=== PATIENT | female | born 1960 | race Caucasian/White ===

== ENCOUNTER → 2025-07-20 | Outpatient (CLI) | payer MEDICARE, OTHER, SELFPAY ==
--- NOTE | 2025-07-20 08:31 | CT_ITS ---
PROCEDURE: ABDOMEN/PELVIS WITH CONTRAST 07/20/2025 REASON FOR EXAM: ASYMPTOMATIC MICROSCOPIC HEMATURIA TECHNIQUE: Procedure Code: [id number] Modality: CT Procedure: ABDOMEN/PELVIS WITH CONTRAST Coronal and Sagittal reconstruction series were provided. CONTRAST: Isovue 370 VOLUME: 75 ML One or more dose reduction techniques were used (e.g., Automated exposure control, adjustment of the mA and/or kV according to patient size, use of iterative reconstruction technique. RADIATION DOSE SUMMARY: CTDlvol: 18.3 mGy DLP: 1067.35 mGycm COMPARISON: None. FINDINGS: Lung bases: Clear. Liver: Unremarkable. Gallbladder: Cholelithiasis. No biliary dilation. Spleen: Unremarkable. Pancreas: Unremarkable. Adrenals: A 2.5 cm right adrenal cyst. The left adrenal cyst is unremarkable. Kidneys: No hydronephrosis. No nephrolithiasis. No kidney mass. Bladder: Unremarkable. Reproductive Organs: Unremarkable. Bowel: No bowel wall thickening. No bowel obstruction. Appendix: Normal. Lymph nodes: No lymphadenopathy. Vasculature: No aneurysm. Peritoneum / Retroperitoneum: No free air or free fluid. Bones: No acute bony elements. CT/Abdomen/Pelvis WITH Contrast IMPRESSION: No acute abdominopelvic abnormalities. No kidney masses. No hydronephrosis. No nephrolithiasis. Cholelithiasis with no evidence of acute cholecystitis. Incidental 2.5 cm right adrenal cyst. Reading Location: [facility] [place]
== END | disposition home or self-care (01) ==
LOC: CT 08:29
PROVIDERS: PCP Family Medicine; Referring Provider Urology; Visit Provider Urology
DX: R31.21 Asymptomatic microscopic hematuria (principal)
CPT/HCPCS: 74177; Q9967

== ENCOUNTER 2025-08-08 18:38 | Emergency (ER) | payer MEDICARE, OTHER, SELFPAY ==
[2025-08-08 18:39] VITALS: BP 139/71; PULSE 68; RESP 16; TEMP 36.4; O2SAT 100; BMI 31.3
[2025-08-08 19:00] LABS: Mucous, Urine 0 SEEN /hpf (<or=2+)
[2025-08-08 19:01] LABS: Color, Urine Yellow (Yellow); Glucose, Dipstick Normal (Normal); Ketone-Dipstick Negative (Negative); Leukocyte Esterase-Dipstick Negative /ul (Negative); Nitrite-Dipstick Negative (Negative); Occult Blood-Urine 150 /ul (Negative); Protein-Dipstick Negative (Negative); Specific Gravity, Urine 1.005 (1.002-1.030); Urine Bilirubin Dipstick Negative (Negative)
[2025-08-08 19:11] LABS: Red Blood Cells-Urine 0-5 SEEN /hpf (0-5); Squamous Epithelial Cells - UA 0-5 SEEN /hpf (5-10)
--- OUTSIDE RECORDS SUMMARY | 2025-08-08 19:29 | XMS RPT_ITS | CCD ---
Author Organization [facility] Care Team Providers Care Oxyhydrogen Welder Name Role Phone Bharat Gallego Unavailable Unavailable Primay Care Physicia, No Unavailable Unavail able MODESTA ZAIDI DO Primary Care Physician [phone] MODESTA ZAIDI DO Attending Unavailable MODESTA ZAIDI DO Primary Care Unavailable MODESTA ZAIDI DO Primary Care Physician MODESTA ZAIDI DO Attending Unavailable DYAN DO, MODESTA Primary Care Unavailable DYAN DO, MODESTA Primary Care Unavailable DYAN DO, MODESTA Attending Unavailable DYAN DO, MODESTA Primary Care Unavailable DYAN DO, MODESTA Attending Unavailable YDAN DO, MODESTA Primary Care Unavailable DAVID REGULATORY COMPLIANCE MANAGER-LEATHER CARVER, NAPOLEON Chamorro Attending Unava ilable DYAN DO, MODESTA Primary Care Unavailable DENISE REGULATORY COMPLIANCE MANAGER-LEATHER CARVER, AMIEEDA Attending Unavailab le DYAN DO, MODESTA Primary Care Unavailable DENISE REGULATORY COMPLIANCE MANAGER-LEATHER CARVER, AMIEEDA Attending Unavailab le DYAN DO, MODESTA Primary Care Unavailable DYAN DO, MODESTA Attending Unavailable DYAN DO, MODESTA Primary Care Unavailable DYAN DO, MODESTA Attending Unavailable Allergies Allergy Classification Reported Allergen(s) Allergy Type Date of Onset Reaction(s) Facility (9 sources) Sulfamethoxazole / Trimethoprim; Translations: [sulfamethoxazole-tri methoprim] Drug Allergy Rash [facility] Work Phone: Medications Current Medications Medication Drug Class(es) Dates Sig (Normalized) Sig (Original) acetaminophen 500 mg / diphenhydrAMINE hydrochloride 25 mg oral tablet (7 sources) Histamine-1 Receptor Antagonist Start: 04-20-2021 take 1 tablet by mouth once daily at bedtime Tylenol PM Extra Strength oral tablet tab(s), Oral, qHS, 0 Refill(s) Start Date: 04/20/21 Status: Ordered Medication Dispense Status: Completed Total Allowed Fills: 1 Fills Dispensed: 0 busPIRone hydrochloride 5 mg oral tablet (1 source) Start: 05-27-2025 busPIRone 5 mg oral tablet Dose : 5 mg = 1 tab(s), Oral, TID, # 90 tab(s), 1 Refill(s), Pharmacy: [facility]/pharmacy #[id number], Anxiety, 162, cm, 05/27/25 8:57:00 EDT, Height, kg, 05/27/25 8:57:00 EDT, Dosing Weight Start Date: 05/27/25 Status: Ordered Medication Dispense Status: Completed Quantity: 90.0 Unit: tab(s) Total Allowed Fills: 2 Fills Dispensed: 0 Indications: Anxiety disorder, unspecified; cephalexin 500 mg oral capsule (1 source) Cephalosporin Antibacterial Start: 10-02-2021 End: 10-09-2021 cephalexin 500 mg oral capsule Dose : 500 mg = 1 cap(s), Oral, q8h, X 7 day(s), # 21 cap(s), 0 Refill(s), 10/09/21 16:15:00 EST, [id number], Abscess of back, 162.7, cm, 10/02/21 15:37:00 EST, Height, 81.1, kg, 10/02/21 15:37:00 EST, Dosing Weight Start Date: 10/02/21 Stop Date: 10/09/21 Status: Ordered citalopram 40 mg oral tablet (9 sources) Serotonin Reuptake Inhibitor Start: 05-27-2025 CeleXA 40 mg oral tablet Dose : 40 mg = 1 tab(s), Oral, qDay, # 90 tab(s), 1 Refill(s), Pharmacy: [facility]/pharmacy #[id number], Mild recurrent major depression Anxiety, 162, cm, 05/27/25 8:57:00 EDT, Height, kg, 05/27/25 8:57:00 EDT, Dosing Weight Start Date: 05/27/25 Status: Ordered Medication Dispense Status: Completed Quantity: 90.0 Unit: tab(s) Total Allowed Fills: 2 Fills Dispensed: 0 Indications: Major depressive disorder, recurrent, mild; Anxiety disorder, unspecified; Start: 11-17-2024 CeleXA 40 mg o ral tablet Dose : 40 mg = 1 tab(s), Oral, qDay, # 90 tab(s), 1 Refill(s), [id number], Depressive disorder Mild recurrent major depression, 162.2, cm, 05/22/24 8:56:00 EDT, Height, kg, 05/22/24 8:56:00 EDT, Dosing Weight Start Date: 11/17/24 Status: Ordered Medication Dispense Status: Completed Quantity: 90.0 Unit: tab(s) Total Allowed Fills: 2 Fills Dispensed: 0 Indications: Major depressive disorder, recurrent, mild; Major depressive disorder, single episode, unspecified; Start: 05-22-2024 CeleXA 40 mg o ral tablet Dose : 40 mg = 1 tab(s), Oral, qDay, # 90 tab(s), 1 Refill(s), [id number], Depressive disorder Mild recurrent major depression, 162.2, cm, 05/22/24 8:56:00 EDT, Height, kg, 05/22/24 8:56:00 EDT, Dosing Weight Start Date: 05/22/24 Status: Ordered Start: 07-02-2023 CeleXA 40 mg o ral tablet Dose : 40 mg = 1 tab(s), Oral, qDay, # 90 tab(s), 1 Refill(s), [id number], Depressive disorder Mild recurrent major depression, 162.75, cm, 07/02/23 15:24:00 EST, Height, kg, 07/02/23 15:24:00 EST, Dosing Weight Start Date: 07/02/23 Status: Ordered Start: 04-20-2021 CeleXA 40 mg o ral tablet Dose : 40 mg = 1 tab(s), Oral, Daily, # 30 tab(s), 11 Refill(s), [id number], Depressive disorder, 161.4, cm, 04/20/21 10:52:00 EDT, Height, kg, 04/20/21 10:52:00 EDT, Dosing Weight Start Date: 04/20/21 Status: Ordered estradiol 0.1 mg/ml vaginal cream (2 sources) Estrogen Start: 05-06-2025 End: 07-05-2025 Estrace Vaginal 0.1 mg/g vaginal cream 0.05 mg, Vaginal, qDay, 0.5g cream (0.05mg estradiol) once nightly x 2 weeks, then twice weekly, # 42.5 gram(s), 1 Refill(s), [id number], 162.5, cm, 05/06/25 7:56:00 EDT, Height, kg, 05/06/25 7:59:00 EDT, Dosing Weight Start Date: 05/06/25 Stop Date: 07/05/25 Status: Ordered Medication Dispense Status: Completed Quantity: 42.5 Unit: g Total Allowed Fills: 2 Fills Dispensed: 0 simvastatin 20 mg oral tablet (8 sources) HMG-CoA Reductase Inhibitor Start: 05-27-2025 simvastatin 20 mg or al tablet Dose : 20 mg = 1 tab(s), Oral, qHS, # 90 tab(s), 1 Refill(s), [id number], Hyperlipidemia, 162, cm, 05/27/25 8:57:00 EDT, Height, kg, 05/27/25 8:57:00 EDT, Dosing Weight Start Date: 05/27/25 Status: Ordered Medication Dispense Status: Completed Quantity: 90.0 Unit: tab(s) Total Allowed Fills: 2 Fills Dispensed: 0 Indications: Hyperlipidemia, unspecified; Start: 11-17-2024 simvastatin 20 mg oral tablet Dose : 20 mg = 1 tab(s), Oral, qHS, # 90 tab(s), 1 Refill(s), [id number], Hyperlipidemia, 162.2, cm, 05/22/24 8:56:00 EDT, Height, kg, 05/22/24 8:56:00 EDT, Dosing Weight Start Date: 11/17/24 Status: Ordered Medication Dispense Status: Completed Quantity: 90.0 Unit: tab(s) Total Allowed Fills: 2 Fills Dispensed: 0 Indications: Hyperlipidemia, unspecified; Start: 05-22-2024 simvastatin 20 mg oral tablet Dose : 20 mg = 1 tab(s), Oral, qHS, # 90 tab(s), 1 Refill(s), [id number], Hyperlipidemia, 162.2, cm, 05/22/24 8:56:00 EDT, Height, kg, 05/22/24 8:56:00 EDT, Dosing Weight Start Date: 05/22/24 Status: Ordered Start: 07-02-2023 simvastatin 20 mg oral tablet Dose : 20 mg = 1 tab(s), Oral, qHS, # 90 tab(s), 1 Refill(s), [id number], Hyperlipidemia, 162.75, cm, 07/02/23 15:24:00 EST, Height, kg, 07/02/23 15:24:00 EST, Dosing Weight Start Date: 07/02/23 Status: Ordered Start: 06-27-2021 simvastatin 20 mg oral tablet Dose : 20 mg = 1 tab(s), Oral, qHS, # 90 tab(s), 1 Refill(s), [id number], Hyperlipidemia, 162.7, cm, 06/27/21 8:07:00 EST, Height, kg, 06/27/21 8:07:00 EST, Dosing Weight Start Date: 06/27/21 Status: Ordered Tylenol PM Extra Strength oral tablet (2 sources) Start: 04-20-2021 take 1 tablet by mouth once daily at bedtime Tylenol PM Extra Strength oral tablet tab(s), Oral, qHS, 0 Refill(s) Start Date: 04/20/21 Status: Ordered Problems Active Problems Problem Classification Problem Date Documented Date Episodic/Chronic Anxiety disorders (1 source) Anxiety 05-27-2025 Chronic Disorders of lipid metabolism (9 sources) Hyperlipidemia 06-08-2020 Chronic Genitourinary symptoms and ill-defined conditions (4 sources) Microscopic hematuria; Translations: [Unspecified symptoms and signs involving the genitourinary system] Onset: 04-12-2025 05-06-2025 Episodic Menopausal disorders (4 sources) Atrophic vaginitis; Translations: [Postmenopausal atrophic vaginitis] Onset: 05-06-2025 05-06-2025 Chronic Mood disorders (15 sources) Depressive disorder; Translations: [Recurrent major depressive episodes, mild ] 05-12-2019 Chronic Noninfectious gastroenteritis (9 sources) Microscopic colitis 06-27-2020 Chronic Nutritional deficiencies (4 sources) Vitamin D deficiency 11-26-2024 Chronic Other female genital disorders (2 sources) Other specified noninflammatory disorders of vagina; Translations: [Other specified noninflammatory disorders of vagina] Onset: 04-09-2025 Episodic Other inflammatory condition of skin (9 sources) Chafing of skin 04-20-2021 Episodic Other nutritional; endocrine; and metabolic disorders (7 sources) Body mass index 30+ - obesity 05-24-2022 Chronic Other skin disorders (6 sources) Closed comedone 09-12-2023 Episodic Other skin disorders (4 sources) Cyst of skin 11-26-2024 Episodic Residual codes; unclassified (9 sources) Needs influenza immunization 06-08-2020 Episodic Residual codes; unclassified (8 sources) Requires diphtheria, tetanus and pertussis vaccination 06-27-2021 Episodic Residual codes; unclassified (7 sources) Requires varicella vaccination 12-19-2021 Episodic Residual codes; unclassified (6 sources) Screening due 09-12-2023 Episodic Screening and history of mental health and substance abuse codes (7 sources) Tobacco use and exposure - finding 05-24-2022 Chronic Unclassified (1 source) Lymphocytic colitis; Translations: [LYMPHOCYTIC COLITIS] Onset: 07-18-2017 Unclassified (20 sources) Patient encounter status 05-13-2019 Unclassified (8 sources) Cancer cervix screening status 06-27-2021 Unclassified (8 sources) Sebaceous cyst of skin 10-06-2021 Unclassified (6 sources) Requires vaccination against Streptococcus pneumoniae 05-22-2024 Past or Other Problems Problem Classification Problem Date Documented Da te Episodic/Chronic Other screening for suspected conditions (not mental disorders or infectious disease) (12 sources) Viral screening status; Translations: [Thyroid function tests abnormal] Onset: 07-21-2024 05-22-2024 Episodic Results Test Name Value Interpretation Reference Range Facility .Auto Diffon 05-28-2025 Basophil, Absolute 0.0 10 3/mcL Normal 0.0-0.3 [facility] Comment on above: Performed By: #### L IPID, CBC, TSH, GFR, VIDH, ADIFF, ANEU, CMP ####[address] [address] Basophils/100 WBC (Bld) 0.4 % Normal 0.0-2.5 [facility] Comment on above: Performed By: #### L IPID, CBC, TSH, GFR, VIDH, ADIFF, ANEU, CMP ####[address] [address] Eosinophil, Absolute 0.1 10 3/mcL Normal 0.0-0.7 [facility] Comment on above: Performed By: #### L IPID, CBC, TSH, GFR, VIDH, ADIFF, ANEU, CMP ####[address] [address] Eosinophils/100 WBC (Bld) 2.6 % Normal 0.0-6.0 [facility] Comment on above: Performed By: #### L IPID, CBC, TSH, GFR, VIDH, ADIFF, ANEU, CMP ####[address] [address] Lymphocyte, Absolute 2.0 10 3/mcL Normal 0.9-4.3 [facility] Comment on above: Performed By: #### L IPID, CBC, TSH, GFR, VIDH, ADIFF, ANEU, CMP ####[address] [address] Lymphocytes/100 WBC (Bld) 38.2 % Normal 20.0-40.0 [facility] Comment on above: Performed By: #### L IPID, CBC, TSH, GFR, VIDH, ADIFF, ANEU, CMP ####[address] [address] Monocyte, Absolute 0.4 10 3/mcL Normal 0.1-1.4 [facility] Comment on above: Performed By: #### L IPID, CBC, TSH, GFR, VIDH, ADIFF, ANEU, CMP ####[address] [address] Monocytes/100 WBC (Bld) 7.4 % Normal 2.0-13.0 [facility] Comment on above: Performed By: #### L IPID, CBC, TSH, GFR, VIDH, ADIFF, ANEU, CMP ####[address] [address] Neutrophils/100 WBC (Bld) 51.4 % Normal 50.0-75.0 [facility] Comment on above: Performed By: #### L IPID, CBC, TSH, GFR, VIDH, ADIFF, ANEU, CMP ####[address] [address] .GFRon 05-28-2025 Estimated Glomerular Filtration Rate 76 ml/min/1.73sqm Normal [facility] Comment on above: Result Comment: Stages of Chronic Kidney Disease (CKD) Stage Description eGFR(ml/min/1.73 sq.m.) CKD 1 Normal kidney function or >=90 normal kindney function with possible kidney damage (ex. Proteinuria) CKD 2 Kidney damage with mild loss 60-89 of kidney function CKD 3a Mild to moderate loss of kidney 45-59 function CKD 3b Moderate to severe loss of 30-44 of kindey function CKD 4 Severe loss of kidney function 15-29 CKD 5 Kidney failure <15 Note: (go live 2024) the eGFR calculation was updated to the 2020 CKD-EPI creatinine equation without a race factor to calculate the eGFR results. Performed By: #### L IPID, CBC, TSH, GFR, VIDH, ADIFF, ANEU, CMP #### [address] [address] .NEUABSon 05-28-2025 Neutrophil, Absolute 2.7 10 3/mcL Normal 2.3-8.1 [facility] Comment on above: Performed By: #### L IPID, CBC, TSH, GFR, VIDH, ADIFF, ANEU, CMP ####[address] [address] CBCon 05-28-2025 Erythrocyte distribution width (RBC) [Ratio] 12.8 % Normal 11.5-15.5 [facility] Comment on above: Performed By: #### L IPID, CBC, TSH, GFR, VIDH, ADIFF, ANEU, CMP #### [address] [address] Hematocrit (Bld) [Volume fraction] 39.6 % Normal 34.0-46.0 [facility] Comment on above: Performed By: #### L IPID, CBC, TSH, GFR, VIDH, ADIFF, ANEU, CMP #### [place] [address] Hgb 13.5 G/dL Normal 12.0-16.0 [facility] Comment on above: Performed By: #### L IPID, CBC, TSH, GFR, VIDH, ADIFF, ANEU, CMP #### [place] [address] MCH (RBC) [Entitic mass] 30.7 pg Normal 27.0-33.0 [facility] Comment on above: Performed By: #### L IPID, CBC, TSH, GFR, VIDH, ADIFF, ANEU, CMP #### [place] [address] MCHC 34.0 G/dL Normal 32.0-36.0 [facility] Comment on above: Performed By: #### L IPID, CBC, TSH, GFR, VIDH, ADIFF, ANEU, CMP #### [place] [address] MCV (RBC) [Entitic vol] 90.3 fL Normal 80.0-99.0 [facility] Comment on above: Performed By: #### L IPID, CBC, TSH, GFR, VIDH, ADIFF, ANEU, CMP #### [address] [address] Platelet 253 10 3/mcL Normal 150-450 [facility] Comment on above: Performed By: #### L IPID, CBC, TSH, GFR, VIDH, ADIFF, ANEU, CMP #### [address] [address] Platelet mean volume (Bld) [Entitic vol] 8.3 fL Normal 6.6-10.5 [facility] Comment on above: Performed By: #### L IPID, CBC, TSH, GFR, VIDH, ADIFF, ANEU, CMP #### [address] [address] RBC 4.38 10 6/mcL Normal 4.10-5.30 [facility] Comment on above: Performed By: #### L IPID, CBC, TSH, GFR, VIDH, ADIFF, ANEU, CMP #### [address] [address] WBC 5.2 10 3/mcL Normal 4.5-10.8 [facility] Comment on above: Performed By: #### L IPID, CBC, TSH, GFR, VIDH, ADIFF, ANEU, CMP #### [address] [address] CMPon 05-28-2025 Albumin Level 4.0 G/dL Normal 3.4-4.8 [facility] Comment on above: Performed By: #### L IPID, CBC, TSH, GFR, VIDH, ADIFF, ANEU, CMP #### [address] [address] Albumin/Globulin [Mass ratio] 1.2 {ratio} Normal 1.1-2.5 [facility] Comment on above: Performed By: #### L IPID, CBC, TSH, GFR, VIDH, ADIFF, ANEU, CMP #### [address] [address] ALP [Catalytic activity/Vol] 80 U/L Normal 40-135 [facility] Comment on above: Performed By: #### L IPID, CBC, TSH, GFR, VIDH, ADIFF, ANEU, CMP #### [address] [address] ALT [Catalytic activity/Vol] 30 U/L Normal 14-59 [facility] Comment on above: Performed By: #### L IPID, CBC, TSH, GFR, VIDH, ADIFF, ANEU, CMP #### [address] [address] AST [Catalytic activity/Vol] 20 U/L Normal 10-40 [facility] Comment on above: Performed By: #### L IPID, CBC, TSH, GFR, VIDH, ADIFF, ANEU, CMP #### [address] [address] Bili Total 1.0 mg/dL Normal 0.2-1.0 [facility] Comment on above: Result Comment: Use of this assay is not recommended for patients undergoing treatment with eltrombopag due to the potential for falsely elevated results. Performed By: #### L IPID, CBC, TSH, GFR, VIDH, ADIFF, ANEU, CMP #### [place] [address] BUN/Creatinine Ratio 14 ratio Normal 7-27 [facility] Comment on above: Performed By: #### L IPID, CBC, TSH, GFR, VIDH, ADIFF, ANEU, CMP #### [place] [address] Calcium [Mass/Vol] 9.3 mg/dL Normal 8.4-10.2 [facility] Comment on above: Performed By: #### L IPID, CBC, TSH, GFR, VIDH, ADIFF, ANEU, CMP #### [place] [address] Chloride [Moles/Vol] 105 mmol/L Normal 98-107 [facility] Comment on above: Performed By: #### L IPID, CBC, TSH, GFR, VIDH, ADIFF, ANEU, CMP #### [address] [address] CO2 [Moles/Vol] 35 mmol/L High 23-31 [facility] Comment on above: Performed By: #### L IPID, CBC, TSH, GFR, VIDH, ADIFF, ANEU, CMP #### [place] [address] Creatinine [Mass/Vol] 0.85 mg/dL Normal 0.51-0.95 [facility] Comment on above: Performed By: #### L IPID, CBC, TSH, GFR, VIDH, ADIFF, ANEU, CMP #### [address] [address] Electrolyte Balance 2.0 mEq/L Low 4.0-15.0 [facility] Comment on above: Performed By: #### L IPID, CBC, TSH, GFR, VIDH, ADIFF, ANEU, CMP #### [address] [address] Globulin 3.4 G/dL Normal 2.7-4.4 [facility] Comment on above: Performed By: #### L IPID, CBC, TSH, GFR, VIDH, ADIFF, ANEU, CMP #### [address] [address] Glucose [Mass/Vol] 89 mg/dL Normal 80-115 [facility] Comment on above: Performed By: #### L IPID, CBC, TSH, GFR, VIDH, ADIFF, ANEU, CMP #### [address] [address] Potassium [Moles/Vol] 4.7 mmol/L Normal 3.5-5.1 [facility] Comment on above: Performed By: #### L IPID, CBC, TSH, GFR, VIDH, ADIFF, ANEU, CMP #### [address] [address] Sodium [Moles/Vol] 142 mmol/L Normal 136-145 [facility] Comment on above: Performed By: #### L IPID, CBC, TSH, GFR, VIDH, ADIFF, ANEU, CMP #### [address] [address] Total Protein 7.4 G/dL Normal 6.4-8.2 [facility] Comment on above: Performed By: #### L IPID, CBC, TSH, GFR, VIDH, ADIFF, ANEU, CMP #### [address] [address] Urea nitrogen [Mass/Vol] 12 mg/dL Normal 7-18 [facility] Comment on above: Performed By: #### L IPID, CBC, TSH, GFR, VIDH, ADIFF, ANEU, CMP #### [place] [address] [place], [place] [address] LABORATORYOrdered By: SYSTEM SYSTEM on 05-28-2025 25-hydroxyvitamin D3 [Mass/Vol] 44.3 ng/mL Invalid Interpretation Code AO ADM SS Comment on above: Interpretive Data: I nterpretive Values Based on Total 25(OH) Vitamin D: Deficient <20 ng/mL Insufficient 20 - <30 ng/mL Sufficient 30-100 ng/mL Albumin BCP dye [Mass/Vol] 4.0 G/dL Normal 3.4 - 4.8 G/dL AO ADM SS Albumin/Globulin [Mass ratio] 1.2 {ratio} Normal 1.1 - 2.5 ratio AO ADM SS ALP [Catalytic activity/Vol] 80 U/L Normal 40 - 135 U/L AO ADM SS ALT With P-5'-P [Catalytic activity/Vol] 30 U/L Normal 14 - 59 U/L AO ADM SS AST With P-5'-P [Catalytic activity/Vol] 20 U/L Normal 10 - 40 U/L AO ADM SS Basophils (Bld) [#/Vol] 0.0 103/mcL Normal 0.0 - 0.3 10^3/mcL AO Workflow SS Basophils/100 WBC (Bld) 0.4 % Normal 0.0 - 2.5 % AO Workflow SS Bilirubin [Mass/Vol] 1.0 mg/dL Normal 0.2 - 1 .0 mg/dL AO ADM SS Comment on above: Interpretive Data: U se of this assay is not recommended for patients undergoing treatment with eltrombopag due to the potential for falsely elevated results. Calcium [Mass/Vol] 9.3 mg/dL Normal 8.4 - 10. 2 mg/dL AO ADM SS Chloride [Moles/Vol] 105 mmol/L Normal 98 - 10 7 mmol/L AO ADM SS CO2 [Moles/Vol] 35 mmol/L High 23 - 31 mmol/L AO ADM SS Creatinine [Mass/Vol] 0.85 mg/dL Normal 0.51 - 0.95 mg/dL AO ADM SS Electrolyte Balance 2.0 mEq/L Low 4.0 - 15 .0 mEq/L AO ADM SS Eosinophil, Absolute 0.1 103/mcL Normal 0.0 - 0 .7 10^3/mcL AO Workflow SS Eosinophils/100 WBC (Bld) 2.6 % Normal 0.0 - 6.0 % AO Workflow SS Erythrocyte distribution width (RBC) [Ratio] 12.8 % Normal 11.5 - 15.5 % AO Workflow SS Globulin 3.4 G/dL Normal 2.7 - 4.4 G/dL AO ADM SS GLOMERULAR FILTRATION RATE/1.73 SQ M.PREDICTED:ARVRAT:PT: SER/PLAS/BLD:QN:CREATI NINE-BASED FORMULA (CKD-EPI 2020) 76 ml/min/1.73sqm Invalid Interpretation Code AO Chemistry S Comment on above: Interpretive Data: Stages of Chronic Kidney Disease (CKD) Stage Description eGFR(ml/min/1.73 sq.m.) CKD 1 Normal kidney function or >=90 normal kindney function with possible kidney damage (ex. Proteinuria) CKD 2 Kidney damage with mild loss 60-89 of kidney function CKD 3a Mild to moderate loss of kidney 45-59 function CKD 3b Moderate to severe loss of 30-44 of kindey function CKD 4 Severe loss of kidney function 15-29 CKD 5 Kidney failure <15 Note: (go live 2024) the eGFR calculation was updated to the 2020 CKD-EPI creatinine equation without a race factor to calculate the eGFR results. Glucose [Mass/Vol] 89 mg/dL Normal 80 - 115 mg/dL AO ADM SS Hematocrit (Bld) [Volume fraction] 39.6 % Normal 34.0 - 46.0 % AO Workflow SS Hemoglobin (Bld) [Mass/Vol] 13.5 G/dL Normal 12.0 - 16.0 G/dL AO Workflow SS Lymphocytes (Bld) [#/Vol] 2.0 103/mcL Normal 0.9 - 4.3 10^3/mcL AO Workflow SS Lymphocytes/100 WBC (Bld) 38.2 % Normal 20.0 - 40.0 % AO Workflow SS MCH (RBC) [Entitic mass] 30.7 pg Normal 27.0 - 33.0 pg AO Workflow SS MCHC 34.0 G/dL Normal 32.0 - 36.0 G/dL AO Workflow SS MCV (RBC) [Entitic vol] 90.3 fL Normal 80.0 - 99.0 fL AO Workflow SS Monocytes (Bld) [#/Vol] 0.4 103/mcL Normal 0.1 - 1.4 10^3/mcL AO Workflow SS Monocytes/100 WBC (Bld) 7.4 % Normal 2.0 - 13.0 % AO Workflow SS Neutrophils (Bld) [#/Vol] 2.7 103/mcL Normal 2.3 - 8.1 10^3/mcL AO Workflow SS Neutrophils/100 WBC (Bld) 51.4 % Normal 50.0 - 75.0 % AO Workflow SS Platelet mean volume (Bld) [Entitic vol] 8.3 fL Normal 6.6 - 10.5 fL AO Workflow SS Platelets (Bld) [#/Vol] 253 103/mcL Normal 150 - 450 10^3/mcL AO Workflow SS Potassium [Moles/Vol] 4.7 mmol/L Normal 3.5 - 5.1 mmol/L AO ADM SS Protein [Mass/Vol] 7.4 G/dL Normal 6.4 - 8.2 G/dL AO ADM SS RBC (Bld) [#/Vol] 4.38 106/mcL Normal 4.10 - 5.3 0 10^6/mcL AO Workflow SS Sodium [Moles/Vol] 142 mmol/L Normal 136 - 145 mmol/L AO ADM SS TSH Qn 2.92 m[IU]/L Normal 0.36 - 3.74 mcIU/mL AO ADM SS Urea nitrogen [Mass/Vol] 12 mg/dL Normal 7 - 18 mg/dL AO ADM SS Urea nitrogen/Creatinine [Mass ratio] 14 ratio Normal 7 - 27 ratio AO ADM SS WBC (Bld) [#/Vol] 5.2 103/mcL Normal 4.5 - 10.8 10^3/mcL AO Workflow SS LABORATORYOrdered By: Noe Singh on 05-28-2025 Cholesterol [Mass/Vol] 173 mg/dL Normal 0 - 200 mg/dL AO ADM SS Comment on above: Interpretive Data: C holesterol Reference Interval: Less than 200 Desirable 200-239 Borderline high risk 240 and above High risk Cholesterol in HDL [Mass/Vol] 48 mg/dL Normal 40 - 60 mg/dL AO ADM SS Cholesterol in LDL [Mass/Vol] 92 mg/dL Normal 0 - 130 mg/dL AO ADM SS Triglyceride [Mass/Vol] 165 mg/dL High 0 - 150 mg/dL AO ADM SS Comment on above: Interpretive Data: T riglyceride Reference Interval: Less than 150 Normal 150-199 Borderline high risk 200-499 High risk 500 or higher Very high risk LIPIDon 05-28-2025 Cholesterol [Mass/Vol] 173 mg/dL Normal 0-200 [facility] Comment on above: Result Comment: Chol esterol Reference Interval: Less than 200 Desirable 200-239 Borderline high risk 240 and above High risk Performed By: #### L IPID, CBC, TSH, GFR, VIDH, ADIFF, ANEU, CMP ####[facility] [place], [place] [address] Cholesterol in HDL [Mass/Vol] 48 mg/dL Normal 40-60 [facility] Comment on above: Performed By: #### L IPID, CBC, TSH, GFR, VIDH, ADIFF, ANEU, CMP ####[facility] [place], [place] [address] Cholesterol in LDL [Mass/Vol] 92 mg/dL Normal 0-130 [facility] Comment on above: Performed By: #### L IPID, CBC, TSH, GFR, VIDH, ADIFF, ANEU, CMP ####[facility] [place] [id number] Triglyceride [Mass/Vol] 165 mg/dL High 0-150 [facility] Comment on above: Result Comment: Trig lyceride Reference Interval: Less than 150 Normal 150-199 Borderline high risk 200-499 High risk 500 or higher Very high risk Performed By: #### L IPID, CBC, TSH, GFR, VIDH, ADIFF, ANEU, CMP ####[facility] [place] [id number] TSHon 05-28-2025 TSH Qn 2.92 m[IU]/L Normal 0.36-3.74 [facility] Comment on above: Performed By: #### L IPID, CBC, TSH, GFR, VIDH, ADIFF, ANEU, CMP #### [id number] [place], [place] [address] VIDHon 05-28-2025 Vit. D 25-Hydroxy 44.3 ng/mL Normal [facility] Comment on above: Result Comment: Inte rpretive Values Based on Total 25(OH) Vitamin D: Deficient <20 ng/mL Insufficient 20 - <30 ng/mL Sufficient 30-100 ng/mL Performed By: #### L IPID, CBC, TSH, GFR, VIDH, ADIFF, ANEU, CMP #### [facility] [address] [place], [place] [address] CVTVon 05-07-2025 Nikky glabrata Negative Normal Negative [facility] Comment on above: Performed By: #### C VTV #### [place] [address] Nikky Species Negative Normal Negative [facility] Comment on above: Result Comment: Mole cular methodology performed on the [facility] [employer] [facility] System. Performed By: #### C VTV #### [place] [address] Trichomonas vaginalis Negative Normal Negative [facility] Comment on above: Performed By: #### C VTV #### [place] [address] LABORATORYOrdered By: SYSTEM SYSTEM on 05-06-2025 Nikky glabrata PCR Negative (05/06/25 1:25 PM) Normal Negative [facility] Auto Viro/Sero SS Nikky Species Negative 1 (05/06/25 1:25 PM) Normal Negative [facility] Auto Viro/Sero SS Comment on above: Interpretive Data: M olecular methodology performed on the [employer] System. Trichomonas vaginalis Negative (05/06/25 1:25 PM) Normal Negative AH Auto Viro/Sero SS BVPCRon 04-12-2025 Bacterial Vaginosis Negative Normal Negative [facility] Comment on above: Result Comment: Mole cular methodology performed on the [employer] System. Performed By: #### B VPCR, CVTV ####[place] [address] CVTVon 04-12-2025 Nikky glabrata Negative Normal Negative [facility] Comment on above: Performed By: #### B VPCR, CVTV ####[place] [address] Nikky Species Negative Normal Negative [facility] Comment on above: Result Comment: Mole cular methodology performed on the [employer] System. Performed By: #### B VPCR, CVTV ####[place] [address] Trichomonas vaginalis Negative Normal Negative [facility] Comment on above: Performed By: #### B VPCR, CVTV ####[address] [address] No Panel Informationon 04-12 Culture Urine 10,000 - 50,000 cfu/ml Mixed growth consistent with normal urogenital caryn. [facility] LABORATORYOrdered By: SYSTEM SYSTEM on 04-09-2025 Bacterial Vaginosis Negative 2 (04/09/25 9:19 AM) Normal [facility] Auto Viro/Sero SS Comment on above: Interpretive Data: M olecular methodology performed on the [employer] [place] System. Nikky glabrata PCR Negative (04/09/25 9:19 AM) Normal AH Auto Viro/Sero SS Nikky Species Negative 1 (04/09/25 9:19 AM) Normal AH Auto Viro/Sero SS Comment on above: Interpretive Data: M olecular methodology performed on the [employer] [facility] [place] System. Trichomonas vaginalis Negative (04/09/25 9:19 AM) Normal AH Auto Viro/Sero SS No Panel Informationon 04-09 Culture Urine 10,000 - 50,000 cfu/ml Multiple bacterial morphotypes present. Probable Contamination. Suggest recollection if clinically indicated. [facility] TSHRon 11-26-2024 TSH Qn 3.12 m[IU]/L Normal 0.36-3.74 [facility] Comment on above: Performed By: #### T SHR ####[address] [address] [place] MAMMOGRAM SCREENING BILAT ERAL W/TOMOon 07-25-2024 MA MAMMOGRAM SCREENING BILATERAL W/JULIEN ORIGINAL FROM: [facility] [address] [place], [place] [address] PROCEDURE FOR: MAYKEL MENDEZ [address] [id number] Home: PID#: [id number] Exam#: [id number] : 1960 Age: 64 TO: MODESTA ZAIDI DO [address] [address] Fax: NO FAX EXAMINATION: SCREENING DIGITAL BILATERAL MAMMOGRAM WITH TOMOSYNTHESIS, 07/21/2024 10:48 am TECHNIQUE: Screening mammography of the bilateral breasts was performed with tomosynthesis. 2D standard and 3D tomosynthesis combination imaging performed through both breasts in the MLO and CC projection. Computer aided detection was utilized in the interpretation of this exam. COMPARISON: 07/17/2023 HISTORY: Breast cancer screening. FINDINGS: BREAST DENSITY: There are scattered areas of fibroglandular density. There are bilateral benign breast calcifications. There are no significant masses or calcifications. IMPRESSION: No mammographic evidence of malignancy. Continued screening with annual mammograms is recommended. Tyrharpreet Cuzick risk calculations, generated with the history provided, report this patient's 10 year risk and lifetime risk for developing breast cancer at 2.3% and 4.7%, respectively. Based on this assessment tool, if the patient's calculated lifetime risk is below 20%, then the patient is considered at average risk for developing breast cancer. If the patient's calculated lifetime risk is at or above 20%, then the patient is considered high risk for developing breast cancer and may be a candidate for supplemental breast MRI screening in addition to annual mammographic screening per the [employer]. BIRADS: BI-RADS: 2: Benign RECALL: 1 year screening RECALL TYPE: mammo LETTER SENT: Normal BI-RADS 1 and 2 Interpreted by: Adryan Grove MD Preliminary Report By: Adryan Grove MD Electronically signed By Adryan Grove MD Dictated Date: 07/25/2024 12:22:17 PM Prelim Date: 07/25/2024 12:25:56 PM Sign Date: 07/25/2024 12:25:56 PM Ordering Provider: MODESTA ZAIDI [employer]crete [employer] Builder: JEANNINE LEACH RT (R)(M) letter sent: Normal BI-RADS 1 and 2 Mammogram BI-RADS: 2 Benign Normal [facility] .Auto Diffon 07-21-2024 Basophil, Absolute 0.0 10 3/mcL Normal 0.0-0.2 [facility] Comment on above: Performed By: #### A DIFF, TSHR, ANEU, GFR, FT4, VIDH, CBC, CMP, LIPID ####[place] [address]#### HCV1 ####[address] [address] Basophils/100 WBC (Bld) 0.6 % Normal 0.0-2.5 [facility] Comment on above: Performed By: #### A DIFF, TSHR, ANEU, GFR, FT4, VIDH, CBC, CMP, LIPID ####[place] [address]#### HCV1 ####[address] [address] Eosinophil, Absolute 0.1 10 3/mcL Normal 0.0-0.7 [facility] Comment on above: Performed By: #### A DIFF, TSHR, ANEU, GFR, FT4, VIDH, CBC, CMP, LIPID ####[place] [address]#### HCV1 ####[address] [address] Eosinophils/100 WBC (Bld) 2.3 % Normal 0.0-7.0 [facility] Comment on above: Performed By: #### A DIFF, TSHR, ANEU, GFR, FT4, VIDH, CBC, CMP, LIPID ####[place] [address]#### HCV1 ####[address] [address] Lymphocyte, Absolute 2.2 10 3/mcL Normal 0.9-4.3 [facility] Comment on above: Performed By: #### A DIFF, TSHR, ANEU, GFR, FT4, VIDH, CBC, CMP, LIPID ####[place] [address]#### HCV1 ####[address] [address] Lymphocytes/100 WBC (Bld) 35.6 % Normal 20.0-40.0 [facility] Comment on above: Performed By: #### A DIFF, TSHR, ANEU, GFR, FT4, VIDH, CBC, CMP, LIPID ####[place] [address]#### HCV1 ####[address] [address] Monocyte, Absolute 0.5 10 3/mcL Normal 0.1-1.4 [facility] Comment on above: Performed By: #### A DIFF, TSHR, ANEU, GFR, FT4, VIDH, CBC, CMP, LIPID ####[place] [address]#### HCV1 ####[address] [address] Monocytes/100 WBC (Bld) 7.5 % Normal 2.0-13.0 [facility] Comment on above: Performed By: #### A DIFF, TSHR, ANEU, GFR, FT4, VIDH, CBC, CMP, LIPID ####[place] [address]#### HCV1 ####[place] [id number] Neutrophils/100 WBC (Bld) 54.0 % Normal 50.0-75.0 [facility] Comment on above: Performed By: #### A DIFF, TSHR, ANEU, GFR, FT4, VIDH, CBC, CMP, LIPID ####[place] [address]#### HCV1 ####[address] [address] .GFRon 07-21-2024 GFR Non- 83 ml/min/1.73sqm Normal [facility] Comment on above: Result Comment: GFR Population mean for , Non- Americans Ages 20-29 = 116 mL/min/1.73 sq.m. Ages 30-39 = 107 mL/min/1.73 sq.m. Ages 40-49 = 99 mL/min/1.73 sq.m. Ages 50-59 = 93 mL/min/1.73 sq.m. Ages 60-69 = 85 mL/min/1.73 sq.m. Ages 70+ = 75 mL/min/1.73 sq.m. Chronic Kidney Disease: Less than 60 mL/min/1.73 square meters End Stage Renal Disease: Less than 15 mL/min/1.73 square meters Performed By: #### A DIFF, TSHR, ANEU, GFR, FT4, VIDH, CBC, CMP, LIPID ####[place] [address]#### HCV1 ####[place] [address] GFR 100 ml/min/1.73sqm Normal [facility] Comment on above: Result Comment: GFR Population mean for , Non- Americans Ages 20-29 = 116 mL/min/1.73 sq.m. Ages 30-39 = 107 mL/min/1.73 sq.m. Ages 40-49 = 99 mL/min/1.73 sq.m. Ages 50-59 = 93 mL/min/1.73 sq.m. Ages 60-69 = 85 mL/min/1.73 sq.m. Ages 70+ = 75 mL/min/1.73 sq.m. Chronic Kidney Disease: Less than 60 mL/min/1.73 square meters End Stage Renal Disease: Less than 15 mL/min/1.73 square meters Performed By: #### A DIFF, TSHR, ANEU, GFR, FT4, VIDH, CBC, CMP, LIPID ####[place] [address]#### HCV1 ####[address] [address] .NEUABSon 07-21-2024 Neutrophil, Absolute 3.3 10 3/mcL Normal 2.3-8.1 [facility] Comment on above: Performed By: #### A DIFF, TSHR, ANEU, GFR, FT4, VIDH, CBC, CMP, LIPID ####[id number] [place], [place] [address]#### HCV1 ####[id number] [place] [address] BD BONE DENSITY DEXA AXIAL S Syed 07-21-2024 BD BONE DENSITY DEXA AXIAL SKELETON ORIGINAL EXAMINATION: BONE DENSITOMETRY 07/21/2024 11:31 am TECHNIQUE: A bone density dual x-ray absorptiometry (DEXA) scan was performed of the axial (e.g. hips, spine) and/or appendicular (e.g. radius) skeleton as appropriate. COMPARISON: None. HISTORY: ORDERING SYSTEM PROVIDED HISTORY: Reason for Exam: Osteoporosis Screening FINDINGS: T Score Left Femoral Neck: -1.9 Left Femoral Neck: 0.643 (g/cm2) T Score Left Hip: -0.9 Left Hip: 0.827 (g/cm2) T Score Lumbar Spine: -0.8 Lumbar Spine: 0.962 (g/cmd2) FRAX: 10 year fracture risk assessment Major osteoporotic fracture: 16% Hip fracture: 2.1% IMPRESSION: Osteopenia by WHO criteria. World Health Organization criteria: (Comparing with young normal sex matched population) - Normal: T-score at or above -1 SD (standard deviation) - Osteopenia: T-score between -1 and -2.5 SD - Osteoporosis: T-score at or below -2.5 SD The NOF recommends that FDA-approved medical therapies be considered in post-menopausal women and men age >/= 50 years with a: * Hip or vertebral fracture, or * T-score of /= 20% for major osteoporotic fractures or * >/= 3% for hip fractures All treatment decisions require clinical judgement and consideration of individual patient factors, including patient preferences, comorbidities, previous drug use, risk factors not captured in the FRAX registered model (e.g., frailty, falls, vitamin D deficiency, increased bone turnover, interval significant decline in bone density) and possible under- or over-estimation of fracture risk by FRAX. Interpreted by: Piter Francois DO Preliminary Report By: Piter Francois DO Electronically signed By Piter Francois DO Dictated Date: 07/21/2024 12:28:52 PM Prelim Date: 07/21/2024 12:29:29 PM Sign Date: 07/21/2024 12:29:29 PM Ordering Provider: MODESTA Jordan [facility] CBCon 07-21-2024 Erythrocyte distribution width (RBC) [Ratio] 12.7 % Normal 11.5-15.5 [facility] Comment on above: Performed By: #### A DIFF, TSHR, ANEU, GFR, FT4, VIDH, CBC, CMP, LIPID ####[place] [address]#### HCV1 ####[place] [address] Hematocrit (Bld) [Volume fraction] 41.5 % Normal 34.0-46.0 [facility] Comment on above: Performed By: #### A DIFF, TSHR, ANEU, GFR, FT4, VIDH, CBC, CMP, LIPID ####[place] [address]#### HCV1 ####[place] [address] Hgb 13.7 G/dL Normal 12.0-16.0 [facility] Comment on above: Performed By: #### A DIFF, TSHR, ANEU, GFR, FT4, VIDH, CBC, CMP, LIPID ####[place] [address]#### HCV1 ####[place] [address] MCH (RBC) [Entitic mass] 30.3 pg Normal 27.0-33.0 [facility] Comment on above: Performed By: #### A DIFF, TSHR, ANEU, GFR, FT4, VIDH, CBC, CMP, LIPID ####[place] [address]#### HCV1 ####[place] [address] MCHC 33.1 G/dL Normal 32.0-36.0 [facility] Comment on above: Performed By: #### A DIFF, TSHR, ANEU, GFR, FT4, VIDH, CBC, CMP, LIPID ####[place] [address]#### HCV1 ####[place] [address] MCV (RBC) [Entitic vol] 91.7 fL Normal 80.0-99.0 [facility] Comment on above: Performed By: #### A DIFF, TSHR, ANEU, GFR, FT4, VIDH, CBC, CMP, LIPID ####[place] [address]#### HCV1 ####[place] [address] Platelet 266 10 3/mcL Normal 150-450 [facility] Comment on above: Performed By: #### A DIFF, TSHR, ANEU, GFR, FT4, VIDH, CBC, CMP, LIPID ####[place] [address]#### HCV1 ####[place] [address] Platelet mean volume (Bld) [Entitic vol] 7.9 fL Normal 6.6-10.5 [facility] Comment on above: Performed By: #### A DIFF, TSHR, ANEU, GFR, FT4, VIDH, CBC, CMP, LIPID ####[place] [address]#### HCV1 ####[place] [address] RBC 4.52 10 6/mcL Normal 4.10-5.30 [facility] Comment on above: Performed By: #### A DIFF, TSHR, ANEU, GFR, FT4, VIDH, CBC, CMP, LIPID ####[place] [address]#### HCV1 ####[place] [address] WBC 6.1 10 3/mcL Normal 4.5-10.8 [facility] Comment on above: Performed By: #### A DIFF, TSHR, ANEU, GFR, FT4, VIDH, CBC, CMP, LIPID ####[place] [address]#### HCV1 ####[place] [address] CMPon 07-21-2024 Albumin/Globulin [Mass ratio] 1.2 {ratio} Normal 1.1-2.5 [facility] Comment on above: Performed By: #### A DIFF, TSHR, ANEU, GFR, FT4, VIDH, CBC, CMP, LIPID ####[place] [address]#### HCV1 ####[place] [address] Globulin 3.2 G/dL Normal [facility] Comment on above: Performed By: #### A DIFF, TSHR, ANEU, GFR, FT4, VIDH, CBC, CMP, LIPID ####[place] [address]#### HCV1 ####[place] [address] Albumin Level 3.8 G/dL Normal 3.4-4.8 [facility] Comment on above: Performed By: #### A DIFF, TSHR, ANEU, GFR, FT4, VIDH, CBC, CMP, LIPID ####[place] [address]#### HCV1 ####[place] [address] ALP [Catalytic activity/Vol] 84 U/L Normal 40-135 [facility] Comment on above: Performed By: #### A DIFF, TSHR, ANEU, GFR, FT4, VIDH, CBC, CMP, LIPID ####[place] [address]#### HCV1 ####[place] [address] ALT [Catalytic activity/Vol] 29 U/L Normal 14-59 [facility] Comment on above: Performed By: #### A DIFF, TSHR, ANEU, GFR, FT4, VIDH, CBC, CMP, LIPID ####[place] [address]#### HCV1 ####[place] [address] AST [Catalytic activity/Vol] 18 U/L Normal 10-40 [facility] Comment on above: Performed By: #### A DIFF, TSHR, ANEU, GFR, FT4, VIDH, CBC, CMP, LIPID ####[place] [address]#### HCV1 ####[place] [address] Bili Total 0.7 mg/dL Normal 0.2-1.0 [facility] Comment on above: Result Comment: Use of this assay is not recommended for patients undergoing treatment with eltrombopag due to the potential for falsely elevated results. Performed By: #### A DIFF, TSHR, ANEU, GFR, FT4, VIDH, CBC, CMP, LIPID ####[place] [address]#### HCV1 ####[place] [address] BUN/Creatinine Ratio 20 ratio Normal 7-27 [facility] Comment on above: Performed By: #### A DIFF, TSHR, ANEU, GFR, FT4, VIDH, CBC, CMP, LIPID ####[place] [address]#### HCV1 ####[place] [address] Calcium [Mass/Vol] 9.3 mg/dL Normal 8.4-10.2 [facility] Comment on above: Performed By: #### A DIFF, TSHR, ANEU, GFR, FT4, VIDH, CBC, CMP, LIPID ####[place] [address]#### HCV1 ####[address] [address] Chloride [Moles/Vol] 105 mmol/L Normal 98-107 [facility] Comment on above: Performed By: #### A DIFF, TSHR, ANEU, GFR, FT4, VIDH, CBC, CMP, LIPID ####[place] [address]#### HCV1 ####[place] [address] CO2 [Moles/Vol] 32 mmol/L High 23-31 [facility] Comment on above: Performed By: #### A DIFF, TSHR, ANEU, GFR, FT4, VIDH, CBC, CMP, LIPID ####[place] [address]#### HCV1 ####[place] [address] Creatinine [Mass/Vol] 0.71 mg/dL Normal 0.55-1.02 [facility] Comment on above: Result Comment: Test ing performed on [employer] Dimension EXL analyzer using a modified kinetic Pato technique. Performed By: #### A DIFF, TSHR, ANEU, GFR, FT4, VIDH, CBC, CMP, LIPID ####[place] [address]#### HCV1 ####[place] [address] Electrolyte Balance 5.0 mEq/L Normal 4.0-15.0 [facility] Comment on above: Performed By: #### A DIFF, TSHR, ANEU, GFR, FT4, VIDH, CBC, CMP, LIPID ####[place] [address]#### HCV1 ####[place] [address] Glucose [Mass/Vol] 83 mg/dL Normal 80-115 [facility] Comment on above: Performed By: #### A DIFF, TSHR, ANEU, GFR, FT4, VIDH, CBC, CMP, LIPID ####[place] [id number]#### HCV1 ####[place] [address] Potassium [Moles/Vol] 4.3 mmol/L Normal 3.5-5.1 [facility] Comment on above: Performed By: #### A DIFF, TSHR, ANEU, GFR, FT4, VIDH, CBC, CMP, LIPID ####[place] [address]#### HCV1 ####[place] [address] Sodium [Moles/Vol] 142 mmol/L Normal 136-145 [facility] Comment on above: Performed By: #### A DIFF, TSHR, ANEU, GFR, FT4, VIDH, CBC, CMP, LIPID ####[place] [address]#### HCV1 ####[place] [address] Total Protein 7.0 G/dL Normal 6.4-8.2 [facility] Comment on above: Performed By: #### A DIFF, TSHR, ANEU, GFR, FT4, VIDH, CBC, CMP, LIPID ####[place] [address]#### HCV1 ####[place] [address] Urea nitrogen [Mass/Vol] 14 mg/dL Normal 7-18 [facility] Comment on above: Performed By: #### A DIFF, TSHR, ANEU, GFR, FT4, VIDH, CBC, CMP, LIPID ####[place] [address]#### HCV1 ####[place] [address] FT4on 07-21-2024 Free T4 [Mass/Vol] 0.71 ng/dL Low 0.76-1.46 [facility] Comment on above: Order Comment: Order ed by Discern Performed By: #### A DIFF, TSHR, ANEU, GFR, FT4, VIDH, CBC, CMP, LIPID ####[place] [address]#### HCV1 ####[place] [address] HCVon 07-21-2024 Hep C Ab Non-Reactive Normal Non-Reactive [facility] Comment on above: Performed By: #### A DIFF, TSHR, ANEU, GFR, FT4, VIDH, CBC, CMP, LIPID ####[place] [address]#### HCV1 ####[place] [address] Hep C Ab Int Normal [facility] Comment on above: Result Comment: Nonr eactive: Samples with a value < 0.80 are considered nonreactive (negative) for antibodies to HCV. A negative test result does not exclude the possibility of exposure to or infection with HCV. HCV antibodies may be undetectable in some stages of the infection and in some clinical conditions. See Interp Performed By: #### A DIFF, TSHR, ANEU, GFR, FT4, VIDH, CBC, CMP, LIPID ####[place] [address]#### HCV1 ####[place] [address] LABORATORYOrdered By: SYSTEM SYSTEM on 07-21-2024 25-hydroxyvitamin D3 [Mass/Vol] 37.7 ng/mL Invalid Interpretation Code AO ADM SS Comment on above: Interpretive Data: I nterpretive Values Based on Total 25(OH) Vitamin D: Deficient <20 ng/mL Insufficient 20 - <30 ng/mL Sufficient 30-100 ng/mL Albumin BCP dye [Mass/Vol] 3.8 G/dL Normal 3.4 - 4.8 G/dL AO ADM SS ALP [Catalytic activity/Vol] 84 U/L Normal 40 - 135 U/L AO ADM SS ALT With P-5'-P [Catalytic activity/Vol] 29 U/L Normal 14 - 59 U/L AO ADM SS AST With P-5'-P [Catalytic activity/Vol] 18 U/L Normal 10 - 40 U/L AO ADM SS Basophils (Bld) [#/Vol] 0.0 103/mcL Normal 0.0 - 0.2 10^3/mcL AO Workflow SS Basophils/100 WBC (Bld) 0.6 % Normal 0.0 - 2.5 % AO Workflow SS Bilirubin [Mass/Vol] 0.7 mg/dL Normal 0.2 - 1 .0 mg/dL AO ADM SS Comment on above: Interpretive Data: U se of this assay is not recommended for patients undergoing treatment with eltrombopag due to the potential for falsely elevated results. Calcium [Mass/Vol] 9.3 mg/dL Normal 8.4 - 10. 2 mg/dL AO ADM SS Chloride [Moles/Vol] 105 mmol/L Normal 98 - 10 7 mmol/L AO ADM SS CO2 [Moles/Vol] 32 mmol/L High 23 - 31 mmol/L AO ADM SS Creatinine [Mass/Vol] 0.71 mg/dL Normal 0.55 - 1.02 mg/dL AO ADM SS Comment on above: Interpretive Data: T esting performed on Siemens Dimension EXL analyzer using a modified kinetic Pato technique. Electrolyte Balance 5.0 mEq/L Normal 4.0 - 15 .0 mEq/L AO ADM SS Eosinophil, Absolute 0.1 103/mcL Normal 0.0 - 0 .7 10^3/mcL AO Workflow SS Eosinophils/100 WBC (Bld) 2.3 % Normal 0.0 - 7.0 % AO Workflow SS Erythrocyte distribution width (RBC) [Ratio] 12.7 % Normal 11.5 - 15.5 % AO Workflow SS Free T4 [Mass/Vol] 0.71 ng/dL Low 0.76 - 1. 46 ng/dL AO ADM SS GFR/1.73 sq M.predicted among blacks MDRD (S/P/Bld) [Vol rate/Area] 100 ml/min/1.73sqm Invalid Interpretation Code AO Chemistry S Comment on above: Interpretive Data: GFR Population mean for , Non- Americans Ages 20-29 = 116 mL/min/1.73 sq.m. Ages 30-39 = 107 mL/min/1.73 sq.m. Ages 40-49 = 99 mL/min/1.73 sq.m. Ages 50-59 = 93 mL/min/1.73 sq.m. Ages 60-69 = 85 mL/min/1.73 sq.m. Ages 70+ = 75 mL/min/1.73 sq.m. Chronic Kidney Disease: Less than 60 mL/min/1.73 square meters End Stage Renal Disease: Less than 15 mL/min/1.73 square meters GFR/1.73 sq M.predicted among non-blacks MDRD (S/P/Bld) [Vol rate/Area] 83 ml/min/1.73sqm Invalid Interpretation Code AO Chemistry S Comment on above: Interpretive Data: GFR Population mean for , Non- Americans Ages 20-29 = 116 mL/min/1.73 sq.m. Ages 30-39 = 107 mL/min/1.73 sq.m. Ages 40-49 = 99 mL/min/1.73 sq.m. Ages 50-59 = 93 mL/min/1.73 sq.m. Ages 60-69 = 85 mL/min/1.73 sq.m. Ages 70+ = 75 mL/min/1.73 sq.m. Chronic Kidney Disease: Less than 60 mL/min/1.73 square meters End Stage Renal Disease: Less than 15 mL/min/1.73 square meters Glucose [Mass/Vol] 83 mg/dL Normal 80 - 115 mg/dL AO ADM SS Hematocrit (Bld) [Volume fraction] 41.5 % Normal 34.0 - 46.0 % AO Workflow SS Hemoglobin (Bld) [Mass/Vol] 13.7 G/dL Normal 12.0 - 16.0 G/dL AO Workflow SS Lymphocytes (Bld) [#/Vol] 2.2 103/mcL Normal 0.9 - 4.3 10^3/mcL AO Workflow SS Lymphocytes/100 WBC (Bld) 35.6 % Normal 20.0 - 40.0 % AO Workflow SS MCH (RBC) [Entitic mass] 30.3 pg Normal 27.0 - 33.0 pg AO Workflow SS MCHC 33.1 G/dL Normal 32.0 - 36.0 G/dL AO Workflow SS MCV (RBC) [Entitic vol] 91.7 fL Normal 80.0 - 99.0 fL AO Workflow SS Monocytes (Bld) [#/Vol] 0.5 103/mcL Normal 0.1 - 1.4 10^3/mcL AO Workflow SS Monocytes/100 WBC (Bld) 7.5 % Normal 2.0 - 13.0 % AO Workflow SS Neutrophils (Bld) [#/Vol] 3.3 103/mcL Normal 2.3 - 8.1 10^3/mcL AO Workflow SS Neutrophils/100 WBC (Bld) 54.0 % Normal 50.0 - 75.0 % AO Workflow SS Platelet mean volume (Bld) [Entitic vol] 7.9 fL Normal 6.6 - 10.5 fL AO Workflow SS Platelets (Bld) [#/Vol] 266 103/mcL Normal 150 - 450 10^3/mcL AO Workflow SS Potassium [Moles/Vol] 4.3 mmol/L Normal 3.5 - 5.1 mmol/L AO ADM SS Protein [Mass/Vol] 7.0 G/dL Normal 6.4 - 8.2 G/dL AO ADM SS RBC (Bld) [#/Vol] 4.52 106/mcL Normal 4.10 - 5.3 0 10^6/mcL AO Workflow SS Sodium [Moles/Vol] 142 mmol/L Normal 136 - 145 mmol/L AO ADM SS TSH Qn 3.78 m[IU]/L High 0.36 - 3.74 mcIU/mL AO ADM SS Urea nitrogen [Mass/Vol] 14 mg/dL Normal 7 - 18 mg/dL AO ADM SS Urea nitrogen/Creatinine [Mass ratio] 20 ratio Normal 7 - 27 ratio AO ADM SS WBC (Bld) [#/Vol] 6.1 103/mcL Normal 4.5 - 10.8 10^3/mcL AO Workflow SS LABORATORYOrdered By: Jamal Bradshaw on 07-21-2024 Albumin/Globulin [Mass ratio] 1.2 {ratio} Normal 1.1 - 2.5 ratio AO Chemistry S Cholesterol [Mass/Vol] 151 mg/dL Normal 0 - 200 mg/dL AO ADM SS Comment on above: Interpretive Data: C holesterol Reference Interval: Less than 200 Desirable 200-239 Borderline high risk 240 and above High risk Cholesterol in HDL [Mass/Vol] 53 mg/dL Normal 40 - 60 mg/dL AO ADM SS Cholesterol in LDL [Mass/Vol] 76 mg/dL Normal 0 - 130 mg/dL AO ADM SS Globulin 3.2 G/dL Invalid Interpretation Code AO Chemistry S Triglyceride [Mass/Vol] 111 mg/dL Normal 0 - 150 mg/dL AO ADM SS Comment on above: Interpretive Data: T riglyceride Reference Interval: Less than 150 Normal 150-199 Borderline high risk 200-499 High risk 500 or higher Very high risk LABORATORYOrdered By: Jenni Ferrara on 07-21-2024 HCV Ab IA Ql Non-Reactive (07/21/24 8:25 AM) Normal Non-Reactive AH ADM SS HCV Ab IA Ql Nonreactive: Samples with a value < 0.80 are considered nonreactive (negative) for antibodies to HCV.A negative test result does not exclude the possibility of exposure to or infection with HCV. HCV antibodies may be undetectable in some stages of the infection and in some clinical conditions. Invalid Interpretation Code Chemistry S LIPIDon 07-21-2024 Cholesterol [Mass/Vol] 151 mg/dL Normal 0-200 [facility] Comment on above: Result Comment: Chol esterol Reference Interval: Less than 200 Desirable 200-239 Borderline high risk 240 and above High risk Performed By: #### A DIFF, TSHR, ANEU, GFR, FT4, VIDH, CBC, CMP, LIPID ####[place] [id number]#### HCV1 ####[address] [address] Cholesterol in HDL [Mass/Vol] 53 mg/dL Normal 40-60 [facility] Comment on above: Performed By: #### A DIFF, TSHR, ANEU, GFR, FT4, VIDH, CBC, CMP, LIPID ####[place] [address]#### HCV1 ####[address] [address] Cholesterol in LDL [Mass/Vol] 76 mg/dL Normal 0-130 [facility] Comment on above: Performed By: #### A DIFF, TSHR, ANEU, GFR, FT4, VIDH, CBC, CMP, LIPID ####[place] [address]#### HCV1 ####[address] [address] Triglyceride [Mass/Vol] 111 mg/dL Normal 0-150 [facility] Comment on above: Result Comment: Trig lyceride Reference Interval: Less than 150 Normal 150-199 Borderline high risk 200-499 High risk 500 or higher Very high risk Performed By: #### A DIFF, TSHR, ANEU, GFR, FT4, VIDH, CBC, CMP, LIPID ####[place] [address]#### HCV1 ####[place] [address] TSHRon 07-21-2024 TSH Qn 3.78 m[IU]/L High 0.36-3.74 [facility] Comment on above: Performed By: #### A DIFF, TSHR, ANEU, GFR, FT4, VIDH, CBC, CMP, LIPID ####[place] [address]#### HCV1 ####[place] [address] VIDHon 07-21-2024 Vit. D 25-Hydroxy 37.7 ng/mL Normal [facility] Comment on above: Result Comment: Inte rpretive Values Based on Total 25(OH) Vitamin D: Deficient <20 ng/mL Insufficient 20 - <30 ng/mL Sufficient 30-100 ng/mL Performed By: #### A DIFF, TSHR, ANEU, GFR, FT4, VIDH, CBC, CMP, LIPID ####[place] [address]#### HCV1 ####[place] [address] .GFRon 07-17-2023 GFR 83 ml/min/1.73sqm Normal [facility] ([place]) Comment on above: Result Comment: GFR Population mean for , Non- Americans Ages 20-29 = 116 mL/min/1.73 sq.m. Ages 30-39 = 107 mL/min/1.73 sq.m. Ages 40-49 = 99 mL/min/1.73 sq.m. Ages 50-59 = 93 mL/min/1.73 sq.m. Ages 60-69 = 85 mL/min/1.73 sq.m. Ages 70+ = 75 mL/min/1.73 sq.m. Chronic Kidney Disease: Less than 60 mL/min/1.73 square meters End Stage Renal Disease: Less than 15 mL/min/1.73 square meters Performed By: #### C MP, LIPID, GFR #### [address] [address] GFR Non- 68 ml/min/1.73sqm Normal [facility] ([place]) Comment on above: Result Comment: GFR Population mean for , Non- Americans Ages 20-29 = 116 mL/min/1.73 sq.m. Ages 30-39 = 107 mL/min/1.73 sq.m. Ages 40-49 = 99 mL/min/1.73 sq.m. Ages 50-59 = 93 mL/min/1.73 sq.m. Ages 60-69 = 85 mL/min/1.73 sq.m. Ages 70+ = 75 mL/min/1.73 sq.m. Chronic Kidney Disease: Less than 60 mL/min/1.73 square meters End Stage Renal Disease: Less than 15 mL/min/1.73 square meters Performed By: #### C MP, LIPID, GFR #### [address] [address] [facility] 07-17-2023 Albumin Level 4.1 G/dL Normal 3.4-4.8 [facility] ([place]) Comment on above: Performed By: #### C MP, LIPID, GFR #### [address] [address] Albumin/Globulin [Mass ratio] 1.2 {ratio} Normal 1.1-2.5 [facility] ([place]) Comment on above: Performed By: #### C MP, LIPID, GFR #### [address] [address] ALP [Catalytic activity/Vol] 84 U/L Normal 40-135 [facility] ([place]) Comment on above: Performed By: #### C MP, LIPID, GFR #### [address] [address] ALT [Catalytic activity/Vol] 29 U/L Normal 14-59 [facility] ([place]) Comment on above: Performed By: #### C MP, LIPID, GFR #### [address] [address] AST [Catalytic activity/Vol] 20 U/L Normal 10-40 [facility] ([place]) Comment on above: Performed By: #### C MP, LIPID, GFR #### [address] [address] Bili Total 0.8 mg/dL Normal 0.2-1.0 [facility] ([place]) Comment on above: Result Comment: Use of this assay is not recommended for patients undergoing treatment with eltrombopag due to the potential for falsely elevated results. Performed By: #### C MP, LIPID, GFR #### [address] [address] BUN/Creatinine Ratio 19 ratio Normal 7-27 [facility] ([place]) Comment on above: Performed By: #### C MP, LIPID, GFR #### [address] [address] Calcium [Mass/Vol] 9.0 mg/dL Normal 8.4-10.2 [facility] ([place]) Comment on above: Performed By: #### C MP, LIPID, GFR #### [address] [address] Chloride [Moles/Vol] 105 mmol/L Normal 98-107 [facility] ([place] Comment on above: Performed By: #### C MP, LIPID, GFR #### [address] [address] CO2 [Moles/Vol] 30 mmol/L Normal 23-31 [facility] ([place]) Comment on above: Performed By: #### C MP, LIPID, GFR #### [address] [address] Creatinine [Mass/Vol] 0.84 mg/dL Normal 0.55-1.02 [facility] ([place]) Comment on above: Performed By: #### C MP, LIPID, GFR #### [address] [address] Electrolyte Balance 6.0 mEq/L Normal 4.0-15.0 [facility] ([place]) Comment on above: Performed By: #### C MP, LIPID, GFR #### [address] [address] Globulin 3.4 G/dL Normal [facility] ([place]) Comment on above: Performed By: #### C MP, LIPID, GFR #### [address] [address] Glucose [Mass/Vol] 89 mg/dL Normal 80-115 [facility] ([place] Comment on above: Performed By: #### C MP, LIPID, GFR #### [address] [address] Potassium [Moles/Vol] 4.3 mmol/L Normal 3.5-5.1 [facility] ([place]) Comment on above: Performed By: #### C MP, LIPID, GFR #### [address] [address] Sodium [Moles/Vol] 141 mmol/L Normal 136-145 [facility] ([place] Comment on above: Performed By: #### C MP, LIPID, GFR #### [address] [address] Total Protein 7.5 G/dL Normal 6.4-8.2 [facility] ([place]) Comment on above: Performed By: #### C MP, LIPID, GFR #### [address] [address] Urea nitrogen [Mass/Vol] 16 mg/dL Normal 7-18 [facility] ([place]) Comment on above: Performed By: #### C MP, LIPID, GFR #### [address] [address] LABORATORYOrdered By: SYSTEM SYSTEM on 07-17-2023 Albumin BCP dye [Mass/Vol] 4.1 G/dL Normal 3.4 - 4.8 G/dL AO ADM SS Albumin/Globulin [Mass ratio] 1.2 {ratio} Normal 1.1 - 2.5 ratio AO ADM SS ALP [Catalytic activity/Vol] 84 U/L Normal 40 - 135 U/L AO ADM SS ALT With P-5'-P [Catalytic activity/Vol] 29 U/L Normal 14 - 59 U/L AO ADM SS AST With P-5'-P [Catalytic activity/Vol] 20 U/L Normal 10 - 40 U/L AO ADM SS Bilirubin [Mass/Vol] 0.8 mg/dL Normal 0.2 - 1 .0 mg/dL AO ADM SS Comment on above: Interpretive Data: U se of this assay is not recommended for patients undergoing treatment with eltrombopag due to the potential for falsely elevated results. Calcium [Mass/Vol] 9.0 mg/dL Normal 8.4 - 10. 2 mg/dL AO ADM SS Chloride [Moles/Vol] 105 mmol/L Normal 98 - 10 7 mmol/L AO ADM SS CO2 [Moles/Vol] 30 mmol/L Normal 23 - 31 mmol/L AO ADM SS Creatinine [Mass/Vol] 0.84 mg/dL Normal 0.55 - 1.02 mg/dL AO ADM SS Electrolyte Balance 6.0 mEq/L Normal 4.0 - 15 .0 mEq/L AO ADM SS GFR/1.73 sq M.predicted among blacks MDRD (S/P/Bld) [Vol rate/Area] 83 ml/min/1.73sqm Invalid Interpretation Code AO Chemistry S Comment on above: Interpretive Data: GFR Population mean for , Non- Americans Ages 20-29 = 116 mL/min/1.73 sq.m. Ages 30-39 = 107 mL/min/1.73 sq.m. Ages 40-49 = 99 mL/min/1.73 sq.m. Ages 50-59 = 93 mL/min/1.73 sq.m. Ages 60-69 = 85 mL/min/1.73 sq.m. Ages 70+ = 75 mL/min/1.73 sq.m. Chronic Kidney Disease: Less than 60 mL/min/1.73 square meters End Stage Renal Disease: Less than 15 mL/min/1.73 square meters GFR/1.73 sq M.predicted among non-blacks MDRD (S/P/Bld) [Vol rate/Area] 68 ml/min/1.73sqm Invalid Interpretation Code AO Chemistry S Comment on above: Interpretive Data: GFR Population mean for , Non- Americans Ages 20-29 = 116 mL/min/1.73 sq.m. Ages 30-39 = 107 mL/min/1.73 sq.m. Ages 40-49 = 99 mL/min/1.73 sq.m. Ages 50-59 = 93 mL/min/1.73 sq.m. Ages 60-69 = 85 mL/min/1.73 sq.m. Ages 70+ = 75 mL/min/1.73 sq.m. Chronic Kidney Disease: Less than 60 mL/min/1.73 square meters End Stage Renal Disease: Less than 15 mL/min/1.73 square meters Globulin 3.4 G/dL Invalid Interpretation Code AO ADM SS Glucose [Mass/Vol] 89 mg/dL Normal 80 - 115 mg/dL AO ADM SS Potassium [Moles/Vol] 4.3 mmol/L Normal 3.5 - 5.1 mmol/L AO ADM SS Protein [Mass/Vol] 7.5 G/dL Normal 6.4 - 8.2 G/dL AO ADM SS Sodium [Moles/Vol] 141 mmol/L Normal 136 - 145 mmol/L AO ADM SS Urea nitrogen [Mass/Vol] 16 mg/dL Normal 7 - 18 mg/dL AO ADM SS Urea nitrogen/Creatinine [Mass ratio] 19 ratio Normal 7 - 27 ratio AO ADM SS LABORATORYOrdered By: Sophia Hernandez on 07-17-2023 Cholesterol [Mass/Vol] 179 mg/dL Normal 0 - 200 mg/dL AO ADM SS Comment on above: Interpretive Data: C holesterol Reference Interval: Less than 200 Desirable 200-239 Borderline high risk 240 and above High risk Cholesterol in HDL [Mass/Vol] 57 mg/dL Normal 40 - 60 mg/dL AO ADM SS Cholesterol in LDL [Mass/Vol] 91 mg/dL Normal 0 - 130 mg/dL AO ADM SS Triglyceride [Mass/Vol] 157 mg/dL High 0 - 150 mg/dL AO ADM SS Comment on above: Interpretive Data: T riglyceride Reference Interval: Less than 150 Normal 150-199 Borderline high risk 200-499 High risk 500 or higher Very high risk LIPIDon 11-29-2023 Cholesterol [Mass/Vol] 179 mg/dL Normal 0-200 Counts include 234 beds at the [facility] ([place]) Comment on above: Result Comment: Chol esterol Reference Interval: Less than 200 Desirable 200-239 Borderline high risk 240 and above High risk Performed By: #### C MP, LIPID, GFR #### [place] [address] [place], [place] [address] Cholesterol in HDL [Mass/Vol] 57 mg/dL Normal 40-60 [facility] ([place]) Comment on above: Performed By: #### C MP, LIPID, GFR #### [address] [address] Cholesterol in LDL [Mass/Vol] 91 mg/dL Normal 0-130 [facility] ([place]) Comment on above: Performed By: #### C MP, LIPID, GFR #### [address] [address] Triglyceride [Mass/Vol] 157 mg/dL High 0-150 [facility] ([place]) Comment on above: Result Comment: Trig lyceride Reference Interval: Less than 150 Normal 150-199 Borderline high risk 200-499 High risk 500 or higher Very high risk Performed By: #### C MP, LIPID, GFR #### [address] [address] [place] MAMMOGRAM SCREENING BILAT ERAL W/TOMOon 07-17-2023 [place] MAMMOGRAM SCREENING BILATERAL W/JULIEN ORIGINAL FROM: [address] [address] PROCEDURE FOR: MAYKEL MENDEZ [address] [place] [address] Home: PID#: [id number] Exam#: [id number] : 1960 Age: 63 TO: MODESTA ZAIDI DO [address] [place] [address] Fax: NO FAX EXAMINATION: SCREENING DIGITAL BILATERAL MAMMOGRAM WITH TOMOSYNTHESIS, 07/17/2023 7:51 am TECHNIQUE: Screening mammography of the bilateral breasts was performed with tomosynthesis. 2D standard and 3D tomosynthesis combination imaging performed through both breasts in the MLO and CC projection. Computer aided detection was utilized in the interpretation of this exam. COMPARISON: 06/15/2022, 06/14/2021 HISTORY: Breast cancer screening. FINDINGS: BREAST DENSITY: Scattered fibroglandular tissue There are no significant masses or calcifications. IMPRESSION: No mammographic evidence of malignancy. Continued screening with annual mammograms is recommended. Tray Grover risk calculations, generated with the history provided, report this patient's 10 year risk and lifetime risk for developing breast cancer at 2.3% and 4.9%, respectively. Based on this assessment tool, if the patient's calculated lifetime risk is below 20%, then the patient is considered at average risk for developing breast cancer. If the patient's calculated lifetime risk is at or above 20%, then the patient is considered high risk for developing breast cancer and may be a candidate for supplemental breast MRI screening in addition to annual mammographic screening per the [employer]. BIRADS: MAMMOGRAM BI-RADS: 1: Negative RECALL: 1 year screening RECALL TYPE: mammo LETTER SENT: Normal BI-RADS 1 and 2 Interpreted by: Piter Stahl MD Preliminary Report By: Piter Stahl MD Electronically signed By Piter Stahl MD Dictated Date: 07/17/2023 4:42:34 PM Prelim Date: 07/17/2023 4:45:53 PM Sign Date: 07/17/2023 4:45:53 PM Ordering Provider: MODESTA ZAIDI Concrete Fence Builder: JEFFERSON VARGAS RT(R)(M)(CT) [facility] letter sent: Normal BI-RADS 1 and 2 Mammogram BI-RADS: 1 Negative Normal [facility] ([place]) No Panel Informationon 10-02 Culture Wound Aerobe Few normal skin caryn present. Sensitivity testing not indicated. [facility] GS Rare Gram Positive Cocci [facility] LABORATORYOrdered By: Sophia Hernandez on 06-14-2021 Albumin BCP dye [Mass/Vol] 3.9 G/dL Invalid Interpretation Code 3.4 - 4.8 G/dL AO ADM SS Albumin/Globulin [Mass ratio] 1.2 {ratio} Invalid Interpretation Code 1.1 - 2.5 ratio AO ADM SS ALP [Catalytic activity/Vol] 87 U/L Invalid Interpretation Code 40 - 135 U/L AO ADM SS ALT With P-5'-P [Catalytic activity/Vol] 30 U/L Invalid Interpretation Code 14 - 59 U/L AO ADM SS AST With P-5'-P [Catalytic activity/Vol] 16 U/L Invalid Interpretation Code 10 - 40 U/L AO ADM SS Bilirubin [Mass/Vol] 0.6 mg/dL Invalid Interpretation Code 0.2 - 1.0 mg/dL AO ADM SS Calcium [Mass/Vol] 8.8 mg/dL Invalid Interpretation Code 8.4 - 10.2 mg/dL AO ADM SS Chloride [Moles/Vol] 105 mmol/L Invalid Interpretation Code 98 - 107 mmol/L AO ADM SS Cholesterol [Mass/Vol] 236 mg/dL Invalid Interpretation Code 0 - 200 mg/dL AO ADM SS Cholesterol in HDL [Mass/Vol] 52 mg/dL Invalid Interpretation Code 40 - 60 mg/dL AO ADM SS Cholesterol in LDL [Mass/Vol] 147 mg/dL Invalid Interpretation Code 0 - 130 mg/dL AO ADM SS CO2 [Moles/Vol] 31 mmol/L Invalid Interpretation Code 23 - 31 mmol/L AO ADM SS Creatinine [Mass/Vol] 0.70 mg/dL Invalid Interpretation Code 0.55 - 1.02 mg/dL AO ADM SS Electrolyte Balance 7.0 mEq/L Invalid Interpretation Code AO ADM SS Globulin 3.2 G/dL Invalid Interpretation Code AO ADM SS Glucose [Mass/Vol] 85 mg/dL Invalid Interpretation Code 80 - 115 mg/dL AO ADM SS Potassium [Moles/Vol] 4.5 mmol/L Invalid Interpretation Code 3.5 - 5.1 mmol/L AO ADM SS Protein [Mass/Vol] 7.1 G/dL Invalid Interpretation Code 6.4 - 8.2 G/dL AO ADM SS Sodium [Moles/Vol] 143 mmol/L Invalid Interpretation Code 136 - 145 mmol/L AO ADM SS Triglyceride [Mass/Vol] 184 mg/dL Invalid Interpretation Code 0 - 150 mg/dL AO ADM SS TSH Qn 3.06 m[IU]/L Invalid Interpretation Code 0.36 - 3.74 mcIU/mL AO ADM SS Urea nitrogen [Mass/Vol] 11 mg/dL Invalid Interpretation Code 7 - 18 mg/dL AO ADM SS Urea nitrogen/Creatinine [Mass ratio] 16 ratio Invalid Interpretation Code ratio AO ADM SS LABORATORYOrdered By: SYSTEM SYSTEM on 06-14-2021 GFR 103 ml/min/1.73sqm Invalid Interpretation Code AO Chemistry S GFR Non- 85 ml/min/1.73sqm Invalid Interpretation Code AO Chemistry S COLON BIOPSY (CHOOSE SITE)on 06-27-2017 COLON BIOPSY (CHOOSE SITE) Patient: MAYKEL MENDEZ : 1960 (57/F) Acct Num: [id number] Phys: Bharat Gallego Unit Num: [id number] Loc: LABSPEC Specimen: [id number] Received: 06/27/17 - 1599 Spec Type: COLON BX TISSUES TISSUES: COMMENT Trichrome stain with matched control does not reveal a thickened basal plate. Clinical correlation is suggested. GROSS DESCRIPTION A - Received in fixative is one container labeled with the patient's name and designated terminal ileum biopsy. The specimen consists of two irregular fragments of light cortez soft tissue that in aggregate measure 0.6 x 0.2 x 0.1 cm. The specimen is totally submitted in one cassette. B - Received in fixative is one container labeled with the patient's name and designated right and left colon biopsy. The specimen consists of multiple irregular fragments of light cortez soft tissue that in aggregate measure 2 x 0.5 x0.1 cm. The specimen is totally submitted in one cassette. / SJ:miguel ángel 06/28/17 TC:3 CPT: 72881 x2, [address] HEADER OPERATION: Colonoscopy with biopsies PRE-OP DIAGNOSIS: Chronic diarrhea TISSUE SUBMITTED: A - Terminal ileum biopsies, rule out Crohn's, B - Right and left colon biopsies, rule out microscopic colitis MICROSCOPIC DESCRIPTION Slides are reviewed. MICROSCOPIC DIAGNOSIS A. Terminal ileum, biopsy: No pathologic change. No evidence of enteritis. B. Right and left colon, biopsy: Lymphocytic colitis. AM:miguel ángel 07/01/17 Signed Nikhil Noman 07/01/17 Normal [facility] Comment on above: Performed By: #### P COLBX ####[facility] [id number] [place], [address] Encounters Encounter Date Encounter Type Care Provider Facility Start: 06-03-2025 ambulatory MODESTA DYAN DO Facil ity[facility] Start: 05-28-2025 End: 05-28-2025 ambulatory MODESTA DYAN DO [facility] Start: 05-28-2025 End: 05-28-2025 Patient encounter procedure MODESTA DYAN DO [facility] Start: 05-06-2025 End: 05-10-2025 ambulatory MODESTA DYAN DO Facility[facility] Start: 05-06-2025 End: 05-10-2025 Outreach Lab NAPOLEON HERNANDEZ REGULATORY COMPLIANCE MANAGER-LEATHER CARVER [facility] Start: 04-12-2025 End: 04-16-2025 ambulatory MODESTA DYAN DO Facility[facility] Start: 04-12-2025 End: 04-16-2025 Outreach Lab AMIEROBIN DENISE REGULATORY COMPLIANCE MANAGER-LEATHER CARVER [facility] Start: 04-09-2025 End: 04-13-2025 ambulatory MODESTA DYAN DO Facility:[facility] Start: 04-09-2025 End: 04-13-2025 Outreach Lab AMIEROBIN DENISE REGULATORY COMPLIANCE MANAGER-LEATHER CARVER [facility] Start: 11-26-2024 End: 11-26-2024 ambulatory MODESTA DYAN DO Facility:[facility] Start: 07-21-2024 End: 07-21-2024 ambulatory MODESTA DYAN DO Facility:[facility] Start: 07-21-2024 End: 07-21-2024 Patient encounter procedure MODESTA DYAN DO [facility] Start: 07-21-2024 End: 07-21-2024 ambulatory MODESTA DYAN DO Facility:[facility] Start: 07-21-2024 End: 07-21-2024 Patient encounter procedure MODESTA ZAIDI DO [facility] Start: 07-17-2023 End: 07-18-2023 ambulatory MODESTA ZAIDI DO Facility: Start: 07-17-2023 End: 07-17-2023 Patient encounter procedure MODESTA ZAIDI DO [facility] Start: 10-02-2021 End: 10-06-2021 Outreach Lab [facility] Start: 06-14-2021 End: 06-14-2021 Patient encounter procedure MODESTA ZAIDI DO [facility] Start: 06-27-2017 Ambulatory Bharat sam Facility :[facility] Procedures Date Procedure Procedure Detail Performing Clinician Start: 07-19-2004 Hysterectomy MODESTA HERNANDEZ DO Start: 12-01-2003 Dilation and curettage MODESTA ZAIDI DO Deliveries by lila story (finding) MODESTA ZAIDI DO Comment on above: x 4 Immunizations Immunization Date Immunization Notes Care Provider [facility] 05-22-2024 Pneumococcal conjuga te PCV20, polysaccharide [id number] conjugate, adjuvant, PF; Translations: [Prevnar 20] MODESTA ZAIDI DO [facility] 05-22-2024 influenza, high dose seasonal, preservative-free; Translations: [Fluad PF Prefilled Syringe ] MODESTA ZAIDI DO [facility] 10-06-2022 zoster vaccine recombinant; Translations: [Shingrix] MODESTA DYAN DO [facility] 05-24-2022 influenza, injectabl e, quadrivalent, contains preservative; Translations: [Fluarix PF Quadrivalent ] MODESTA ZAIDI DO [facility] 12-19-2021 zoster vaccine recombinant; Translations: [Shingrix] MODESTA ZAIDI DO [facility] 06-27-2021 tetanus toxoid, redu zi diphtheria toxoid, and acellular pertussis vaccine, adsorbed; Translations: [Boostrix (Tdap)] [facility] 06-27-2021 influenza, injectabl e, quadrivalent, contains preservative; Translations: [Fluarix PF Quadrivalent ] [facility] 12-01-2020 SARS-CoV-2 (COVID-19 ) mRNA-1273 vaccine MODESTA ZAIDI DO [facility] Comment on above: Result Comment: 2020: TPV60 11-02-2020 SARS-CoV-2 (COVID-19 ) mRNA-1273 vaccine MODESTA ADANLAY DO [facility] Comment on above: Result Comment: 2020: TPV60 06-08-2020 influenza, injectabl e, quadrivalent, preservative free; Translations: [Fluarix PF Quadrivalent ] MODESTA ZAIDI DO [facility] 06-05-2019 influenza virus vacc ine, unspecified formulation MODESTA DYAN DO [facility] 04-09-2008 tetanus toxoid, redu zi diphtheria toxoid, and acellular pertussis vaccine, adsorbed MODESTA ZAIDI DO [facility] Payers Date Payer Category Payer Private Health Insurance [id number] 2024 Medicare [id number] 2024 Unknown [id number] 2024 Medicare [id number] 2023 Self-pay 2015 Unknown [id number] 1960 Unknown [id number] .16. [id number]. 1960 Unknown [id number] .. [id number]. 1960 Unknown [id number] 2. [id number]. 1960 Unknown [id number] .. [id number] 1960 Unknown [id number] 2.16. [id number]. 1960 Unknown [id number] 2.16. [id number]. 1960 Unknown [id number] .16.8 [id number]. 1960 Unknown [id number] .16.8 [id number] 1960 Unknown [id number] 2.16.8 [id number] Social History Date Type Detail Facility Start: 04-20-2021 End: 05-27-2025 Never smoked tobacco (finding) [facility] Sex Assigned At Female [facility] Sexual Orientation [facility] ospital [facility] Start: 02-11-2019 Sex Female (finding) [facility] Clinical Notes 07-21-2024 to 04-14-2025 LaboratoryLaboratoryLaboratoryLaboratoryLaboratoryRadiology Note Date & Type Note Facility 04-14-2025 Note . MICRO - Microbiology PROCEDURE: Urine Culture [*1] SOURCE: Urine, Clean Catch BODY SITE: COLLECTED DATE/TIME: 04/12/2025 16:45 EDT RECEIVED DATE/TIME: 04/12/2025 19:04 EDT START DATE/TIME: 04/12/2025 19:04 EDT FREE TEXT SOURCE: FINAL REPORTS Final Report [] Verified Date/Time/Personnel: 04/14/2025 07:43 EDT 10,000 - 50,000 cfu/ml Mixed growth consistent with normal urogenital caryn. PRELIMINARY REPORTS Preliminary Report [] Verified Date/Time/Personnel: 04/13/2025 08:23 EDT No growth to date Preliminary Report [] Verified Date/Time/Personnel: 04/12/2025 19:59 EDT Specimen received in lab. Performing Locations *1: This test was performed at: [facility], [address] [place] [address], [facility] , [facility] 04-10-2025 Note . MICRO - Microbiology PROCEDURE: Urine Culture [*1] SOURCE: Urine, Clean Catch BODY SITE: COLLECTED DATE/TIME: 04/09/2025 09:19 EDT RECEIVED DATE/TIME: 04/09/2025 15:27 EDT START DATE/TIME: 04/09/2025 15:27 EDT FREE TEXT SOURCE: FINAL REPORTS Final Report [] Verified Date/Time/Personnel: 04/10/2025 14:25 EDT 10,000 - 50,000 cfu/ml Multiple bacterial morphotypes present. Probable Contamination. Suggest recollection if clinically indicated. PRELIMINARY REPORTS Preliminary Report [] Verified Date/Time/Personnel: 04/09/2025 15:59 EDT Specimen received in lab. Performing Locations *1: This test was performed at: [facility], [address] [place] [address], [id number] , [facility] 07-21-2024 Note ORIGINAL EXAMINATION: BONE DENSITOMETRY 07/21/2024 11:31 am TECHNIQUE: A bone density dual x-ray absorptiometry (DEXA) scan was performed of the axial (e.g. hips, spine) and/or appendicular (e.g. radius) skeleton as appropriate. COMPARISON: None. HISTORY: ORDERING SYSTEM PROVIDED HISTORY: Reason for Exam: Osteoporosis Screening FINDINGS: T Score Left Femoral Neck: -1.9 Left Femoral Neck: 0.643 (g/cm2) T Score Left Hip: -0.9 Left Hip: 0.827 (g/cm2) T Score Lumbar Spine: -0.8 Lumbar Spine: 0.962 (g/cmd2) FRAX: 10 year fracture risk assessment Major osteoporotic fracture: 16% Hip fracture: 2.1% IMPRESSION: Osteopenia by WHO criteria. World Health Organization criteria: (Comparing with young normal sex matched population) - Normal: T-score at or above -1 SD (standard deviation) - Osteopenia: T-score between -1 and -2.5 SD - Osteoporosis: T-score at or below -2.5 SD The NOF recommends that FDA-approved medical therapies be considered in post-menopausal women and men age >/= 50 years with a: * Hip or vertebral fracture, or * T-score of /= 20% for major osteoporotic fractures or * >/= 3% for hip fractures All treatment decisions require clinical judgement and consideration of individual patient factors, including patient preferences, comorbidities, previous drug use, risk factors not captured in the FRAX registered model (e.g., frailty, falls, vitamin D deficiency, increased bone turnover, interval significant decline in bone density) and possible under- or over-estimation of fracture risk by FRAX. Interpreted by: Piter Francois DO Preliminary Report By: Piter Francois DO Electronically signed By Piter Francois DO Dictated Date: 07/21/2024 12:28:52 PM Prelim Date: 07/21/2024 12:29:29 PM Sign Date: 07/21/2024 12:29:29 PM Ordering Provider: MODESTA ZAIDI [facility] Evaluation + Plan note Future Appointments Appointment Date:06/27/2021 08:00:00 AM Scheduled Provider:MODESTA ZAIDI DO Location:[facility] Appointment Type:[facility] Evaluation + Plan note Future Appointments Appointment Date:12/19/2021 08:00:00 AM Scheduled Provider:MODESTA ZAIDI DO Location:[facility] Appointment Type: OV Future Scheduled TestsThyroid Stimulating Hormone 12/25/21Lipid Profile 12/25/21Complete Metabolic Panel 12/25/[address] [facility] Evaluation + Plan note Future Appointments Appointment Date:10/31/2023 08:30:00 AM Scheduled Provider:MODESTA ZAIDI DO Location:[facility] Appointment Type:PC OV Appointment Date:05/15/2024 09:00:00 AM Scheduled Provider:MODESTA ZAIDI DO Location:[facility] Appointment Type:PC Wellness Medicare [facility] Evaluation + Plan note Future Appointments Appointment Date:11/20/2024 08:30:00 AM Scheduled Provider:MODESTA ZAIDI DO Location:[facility] Appointment Type: OV Future Scheduled TestsTSH with Reflex to FT4 09/01/[address] [facility] Evaluation + Plan note Future Appointments Appointment Date:05/27/2025 09:00:00 AM Scheduled Provider:MODESTA ZAIDI DO Location:[facility] Appointment Type:PC Wellness Medicare Future Scheduled TestsThyroid Stimulating Hormone 05/28/25Complete Blood Count 05/28/25Lipid Profile 05/28/25Vitamin D Level 05/28/25Complete Metabolic Panel 05/28/[address] [facility] Evaluation + Plan note Future Appointments Appointment Date:05/27/2025 09:00:00 AM Scheduled Provider:MODESTA ZAIDI DO Location:[facility] Appointment Type:PC Wellness Medicare Appointment Date:06/10/2025 09:00:00 AM Scheduled Provider:NAPOLEON HERNANDEZ APRN-JHONATHAN Location:[facility] Appointment Type:PC OV Follow Up Future Scheduled TestsThyroid Stimulating Hormone 05/28/25Complete Blood Count 05/28/25Lipid Profile 05/28/25Vitamin D Level 05/28/25Complete Metabolic Panel 05/28/[address] [facility] Evaluation + Plan note Future Appointments Appointment Date:07/08/2025 10:00:00 AM Scheduled Provider:MODESTA ZAIDI DO Location:[facility] Appointment Type:PC OV Follow Up Future Scheduled TestsThyroid Stimulating Hormone 05/28/25Complete Blood Count 05/28/25Lipid Profile 05/28/25Vitamin D Level 05/28/25Complete Metabolic Panel 05/28/25MA Mammo Screening Bilateral w/ Julien 05/27/[address] [facility] Hospital course Narrative No data available for this section [facility] Hospital Discharge instructions No data available for this section [facility] Progress note No data available for this section [facility] Summary Purpose Family History No Family History Records Found No data available for this section No Family History Records Found No data available for this section No data available for this section No data available for this section No data available for this section No data available for this section No data available for this section No Family History Records Found Advance Directives No Advanced Directives Records FoundNo Advanced Directives Records FoundNo Advanced Directives Records Found Additional Source Comments INFORMATION SOURCE (unrecogn ized section and content) DATE CREATED AUTHOR 02/11/2018 [facility] DATE CREATED AUTHOR AUTHOR'S ORGANIZ ATION 07/19/2023 [facility] ([place]) DATE CREATED AUTHOR AUTHOR'S ORGANIZ ATION 06/04/2025 [facility] Patient Care team informatio n (unrecognized section and content) Care Team Personnel Name: TARA TURNER Member Role: Dentist Name: KIM EAST Member Role: Fruit Distributor Name: MODESTA ZAIDI DO Position: P4 Physician - Primary Care Member Role: Primary Care Physician Address: Address: [address] [place] [address] Care Team Related Persons Name: VANESSA SINDHU I Address: Home [address] [address] [place] Care Team Personnel Name: TARA TURNER Member Role: Dentist Name: KIM EAST Member Role: Fruit Distributor Name: MODESTA ZAIDI DO Position: P4 Physician - Primary Care Member Role: Primary Care Physician Address: Address: [address] [place] [address] Care Team Related Persons Name: VANESSA SINDHU I Address: Home [address] [place], [place] [id number] [place] Care Team Personnel Name: TARA TURNER Member Role: Dentist Name: KIM EAST Member Role: Fruit Distributor Name: MODESTA ZAIDI DO Position: P4 Physician - Primary Care Member Role: Primary Care Physician Address: Address: [address] [place] [address] Care Team Related Persons Name: VANESSA SINDHU I Address: Home [address] [place], [place] [id number] [place] Care Team Personnel Name: TARA TURNER Member Role: Dentist Telecom: Name: KIM EAST Member Role: Fruit Distributor Telecom: Name: MODESTA ZAIDI DO Position: P4 Physician - Primary Care Member Role: Primary Care Physician Address: [address] [place] [address], [place] [address]- [place] Telecom: Care Team Related Persons Name: SINDHU MENDEZ I Care Team Personnel Name: TARA TURNER Member Role: Dentist Telecom: Name: KIM EAST Member Role: Fruit Distributor Telecom: Name: MODESTA ZAIDI DO Position: P4 Physician - Primary Care Member Role: Primary Care Physician Address: [address] [place] [address] Telecom: Care Team Related Persons Name: VANESSA, SINDHU I Care Team Personnel Name: TARA TURNER Member Role: Dentist Telecom: Name: KIM EAST Member Role: Fruit Distributor Telecom: Name: MODESTA ZAIDI DO Position: P4 Physician - Primary Care Member Role: Primary Care Physician Address: [address] [place] [address] Telecom: Care Team Related Persons Name: VANESSA SINDHU I Care Team Personnel Name: TARA TURNER Member Role: Dentist Telecom: Name: KIM EAST Member Role: Fruit Distributor Telecom: Name: MODESTA ZAIDI DO Position: P4 Physician - Primary Care Member Role: Primary Care Physician Address: [address] [place] [address] Telecom: Care Team Related Persons Name: SINDHU MENDEZ I FOR RECORDS PERTAINING TO PATIENTS WHO ARE OR HAVE BEEN ENROLLED IN A CHEMICAL DEPENDENCY/SUBSTANCEABUSE PROGRAM, SOME INFORMATION MAY BE OMITTED. This clinical summary was aggregated from multiple sources. Caution should be exercised in using it in the provision of clinical care. This summary normalizes information from multiple sources, and as a consequence, information in this document may materially change the coding, format and clinical context of patient data. In addition, data may be omitted in some cases. CLINICAL DECISIONS SHOULD BE BASED ON THE PRIMARY CLINICAL RECORDS. [employer] [facility]. provides no warranty or guarantee of the accuracy or completeness of information in this document.
[2025-08-08 20:00] LABS: Hematocrit 42.7 % (37-47); Hemoglobin 13.6 g/dL (12.0-15.0); Immature Granulocytes Count 0.040 X10^3/uL (0.0-0.0); Mean Corp Hgb Conc 31.9 g/dL (32-36); Mean Corpuscular Volume 92.6 fL (81-99); Mean Platelet Vol. 9.9 fl (6.2-12.0); NRBC Flagged by Analyzer 0 % (0-5); Platelet Count 243 K/mm3 (150-450); RBC Distribution Width CV 12.1 % (11.6-14.6); RBC Distribution Width SD 41.1 fl (35.1-43.9); Red Blood Count 4.61 M/mm3 (4.2-5.4); White Blood Count 9.0 K/mm3 (4.4-11.0)
--- NOTE | 2025-08-08 20:14 | CT_ITS ---
PROCEDURE: ABDOMEN/PELVIS W IV CONT ONLY 08/08/2025 REASON FOR EXAM: LEFT FLANK PAIN TECHNIQUE: Procedure Code: [id number] Modality: CT Procedure: ABDOMEN/PELVIS W IV CONT ONLY Coronal and Sagittal reconstruction series were provided. CONTRAST: 100 mL of Isovue 370 One or more dose reduction techniques were used (e.g., Automated exposure control, adjustment of the mA and/or kV according to patient size, use of iterative reconstruction technique. RADIATION DOSE SUMMARY: DLP: 720 mGycm COMPARISON: 07/20/2025 FINDINGS: Limited sections of the lung bases demonstrate no focal pulmonary mass or consolidations. The liver, spleen, pancreas, and both adrenal glands demonstrate no acute findings. 2.4 cm hypodense lesion within the right adrenal gland likely adenoma. The gallbladder contains gallstones. Question minimal thickening of the gallbladder wall.. The stomach is unremarkable. The small bowel loops are not dilated. The appendix is normal. No colonic obstruction. There is no free air or significant free fluid. 3 mm obstructive stone at the left UVJ with upstream mild hydroureteronephrosis. 4 mm nonobstructive stone within the right proximal ureter without evidence of hydronephrosis. The urinary bladder is partially distended. The pelvic structures are intact. There is no solid pelvic mass. No significant lymphadenopathy. The aorta and IVC demonstrate no acute findings. Visualized osseous structures demonstrate no acute abnormality. CT/Abdomen/Pelvis W IV Cont ONLY IMPRESSION: 3 mm obstructive stone at the left UVJ with upstream mild hydroureteronephrosis . Trace perinephric stranding. Gallstones with minimal gallbladder wall thickening. If there is concern for a cute cholecystitis, consider right upper quadrant ultrasound for further evaluation. Reading Location: [id number]
[2025-08-08 20:19] LABS: Anion Gap 12 (5-15); BUN 18 mg/dL (4-19); BUN/Creat Ratio 22.2 RATIO (10-20); Calcium,Total 9.5 mg/dL (7.6-11.0); Carbon Dioxide 25.8 mmol/L (21.0-32.0); Chloride 106 mmol/L (98-108); Estimated Creatinine Clearance 72.01 ml/min (50-250); Glucose 108 mg/dL (70-99); Potassium 4.2 mmol/L (3.3-5.1)
--- NOTE | 2025-08-08 20:26 | CM.ED ---
Social Work Date of referral: 08/08/25 Reason for referral: No Advanced Care Directives (ACD's) on file. Referred by: Social Work Identification. Patient provided consent to social work visit. Deck Mechanic requested copy of ACD's which patient stated she wasn't sure she had but will ask her when he returns and will bring in if she has. Geovanna Bower, LIBRARY CLERK, MANAGER PRODUCT
[2025-08-08 20:38] VITALS: PULSE 53; RESP 14; O2SAT 97
--- NOTE | 2025-08-08 20:57 | EDS_ITS ---
HPI History of Present Illness Chief Complaint: Flank Pain Informant: patient Narrative Narrative: Patient is a 65-year-old female with history of hyperlipidemia presenting with 3 weeks of intermittent left flank pain. She notes over the past few days she has had urinary frequency and discomfort in her vaginal area. Today she had about 2 or episode of relatively severe left flank pain. This prompted her to come to the emergency room. She previously been seen by Dr. Barnes as a couple months ago she was having burning and vaginal itching. She was told she has vaginal dryness but was found to have microscopic hematuria. She did have a cystoscopy and states she had a large negative workup. She had a CT of her abdomen and pelvis earlier this month and was told was largely negative. Due to the recurrence and severity of her symptoms she came in for further evaluation. Did not take any for pain prior to arrival. Denies any fever or chills. Nuys any nausea or vomiting. Nuys any change in her bowel movements. PFSH PFSH Medical History no medical history Home Medications ?Medication ?Instructions ?Recorded ?Last Taken ?Type buspirone 5 mg tablet 5 mg PO TID 08/08/25 Unknown History citalopram 40 mg tablet 40 mg PO DAILY 08/08/25 Unkn own History hydrocodone-acetaminophen 5-325mg 1 tab PO Q6H PRN PRN Pain 3 days 08/08/25 Unknown Rx 5mg-325mg #12 TABLETS ondansetron 4 mg disintegrating 4 mg PO Q8H PRN PRN Na usea #10 tabs 08/08/25 Unknown Rx tablet simvastatin 20 mg tablet 20 mg PO QHS 08/08/25 Unknow n History Allergy/AdvReac Type Severity Reaction Status Date / Time Sulfa (Sulfonamide Allergy Mild Rash Verified 08/08/25 18:41 Antibiotics) Social History Smoking Status: Never smoker ROS ROS ED Constitutional Constitutional ED: Denies chills or fever(s) Respiratory/Chest Respiratory/Chest: Denies cough Gastrointestinal Gastrointestinal: Reports abdominal pain; Denies nausea or vomiting Genitourinary Genitourinary ED: Reports dysuria and urinary frequency; Denies hematuria Musculoskeletal Musculoskeletal: Reports back pain; Denies arthralgias or myalgias Integumentary Denies rash Neurologic Neurologic: Denies weakness Hematologic/Lymphatic Hematologic/Lymphatic: Denies easy bleeding or easy bruising EXAM Physical Exam Const Vital Signs: 08/08/25 18:39 08/08/25 20:38 08/08/25 22:00 Temperature 97.6 F L Temperature Source Temporal Pulse Rate 68 53 L 50 L Respiratory Rate 16 14 16 Blood Pressure 139/71 H Blood Pressure Mean 93 Pulse Ox 100 97 96 Oxygen Delivery Method Room Air Room Air 08/08/25 22:30 Temperature 97.8 F Temperature Source Pulse Rate 50 L Respiratory Rate 14 Blood Pressure 135/64 H Blood Pressure Mean 87 Pulse Ox 98 Oxygen Delivery Method Positive well nourished and well developed General Appearance ED: well developed and NAD HEENT Reports moist mucous membranes Neck supple Chest Wall inspection of chest normal and palpation of chest normal Resp normal respiratory effort and clear to auscultation bilaterally Cardio regular rate and regular rhythm GI normal to inspection, nondistended, normoactive bowel sounds and non-tender Palpation: soft Back/Spine no CVA tenderness Extremity normal to inspection Neuro oriented x3 Sensorium / Orientation: alert Motor Exam: Negative for general weakness Psych mental status grossly normal Skin no rashes or lesions noted MDM MDM MDM Narrative Medical decision making narrative: Patient evaluated for urinary symptoms as well as left flank pain. Had prior outpatient evaluation with urology for hematuria and actually a CT which was negative for any kidney stones. Differential includes renal infarct, renal colic, urinary infection, pyelonephritis and muscle skeletal pain. Patient given Toradol in the ER. She is hemodynamically stable. Urinalysis shows blood but is otherwise not consistent with infection. Will add on imaging for further evaluation and lab including CBC and CMP. Lab work largely normal and she has normal kidney function. CT of the abdomen and pelvis actually shows a 3 mm obstructive stone at the left UVJ with some mild associated hydronephrosis and trace perinephric stranding. In addition she has a nonobstructive 4 mm stone on the right. Patient counseled these findings. Did discuss with Dr. Barnes given that she does have bilateral ureter lithiasis. He will follow-up in the office. Agrees that she does not require admission as she does not have associated infection, pain control or bilateral obstructive stones. Is significantly improved with Toradol in the ER. Will be given prescription for [place] for breakthrough pain as well as Zofran. Counseled alternate ibuprofen and Tylenol at home for further pain control. Counseled importance of outpatient follow-up. Given return precautions. Will be treated conservatively at this time. Discharged home in stable improved condition. Patient has been agreeable plan of care Lab Data Attestation: I reviewed the patient's lab results. Labs: Laboratory Results - last 24 hr 08/08/25 08/08/25 18:51 19:42 WBC 9.0 RBC 4.61 Hgb 13.6 Hct 42.7 MCV 92.6 MCH 29.5 MCHC 31.9 L RDW Std Deviation 41.1 RDW Coeff of Steven 12.1 Plt Count 243 MPV 9.9 Immature Gran % (Auto) 0.400 Neut % (Auto) 69.0 Lymph % (Auto) 22.8 [place] % (Auto) 6.1 Eos % (Auto) 1.4 Baso % (Auto) 0.3 Absolute Neuts (auto) 6.2 Absolute Lymphs (auto) 2.05 Nucleated RBC % 0 Sodium 143 Potassium 4.2 Chloride 106 Carbon Dioxide 25.8 Anion Gap 12 BUN 18 Creatinine 0.79 Estim Creat Clear Calc 72.01 Est GFR (MDRD) Non-Af 82 BUN/Creatinine Ratio 22.2 H Glucose 108 H Calcium 9.5 Urine Color Yellow Urine Clarity Clear Urine pH 7.0 Ur Specific [place] 1.005 Urine Protein Negative Urine Glucose (UA) Normal Urine Ketones Negative Urine Occult Blood 150 H Urine Nitrite Negative Urine Bilirubin Negative Urine Urobilinogen Normal Ur Leukocyte Esterase Negative Urine RBC 0-5 SEEN Urine WBC 0-5 SEEN Ur Squamous Epith Cells 0-5 SEEN Urine Bacteria 0 SEEN Urine Mucus 0 SEEN Radiography Diagnostic Testing: Clinical Impression(s) from Imaging Studies Abdomen/Pelvis CT 08/08/25 20:14 IMPRESSION: 3 mm obstructive stone at the left UVJ with upstream mild hydroureteronephrosis. Trace perinephric stranding. Gallstones with minimal gallbladder wall thickening. If there is concern for acute cholecystitis, consider right upper quadrant ultrasound for further evaluation. Reading Location: [id number] Management Discussion w/another healthcare provider: It Engineer (Urologist) Discharge Plan Triage Chief Complaint: Flank Pain ED Provider: Luz Davison Dx/Rx/DC Orders Clinical Impression: Ureterolithiasis, Acute left flank pain, Renal colic Instructions: ED Kidney Stone with Pain Prescriptions: New hydrocodone-acetaminophen 5-325 mg tablet 1 tab PO Q6H PRN PRN (Reason: Pain) 3 Days Qty: 12 0RF ondansetron 4 mg tablet,disintegrating 4 mg PO Q8H PRN PRN (Reason: Nausea) Qty: 10 0RF No Action buspirone 5 mg tablet 5 mg PO TID citalopram 40 mg tablet 40 mg PO DAILY simvastatin 20 mg tablet 20 mg PO QHS Primary Care Provider: Tamara Spain Referrals: Young Barnes MD [Med Staff - Active Staff, Urology] Tamara Spain DO [Primary Care Provider, Medical] Activity Restrictions/Additional Instructions: You have a 3 mm stone in this easily passing on the left side which is causing your pain. Your urine did not show signs of infection. Your kidney function was normal. There is an additional 4 mm stone higher up on the right side of your ureter ureter which is not obstructing or causing any problems at this time. Please follow-up with urology. In the meantime pain control with up to 600 mg (3 ibap-gyi-urlcdxy tablets) of ibuprofen alternated with Tylenol. You been given a prescription for [place] (hydrocodone) for breakthrough/severe pain. Print Language: Croatian Disposition Disposition: Home, Self Care Discharge Date/Time: 08/08/25 22:37
[2025-08-08 22:00] VITALS: PULSE 50; RESP 16; O2SAT 96
[2025-08-08 22:30] VITALS: BP 135/64; PULSE 50; RESP 14; TEMP 36.6; O2SAT 98
== END 2025-08-08 22:37 | disposition home or self-care (01) ==
PROVIDERS: Emergency Provider Emergency Medicine; PCP Family Medicine; Visit Provider Emergency Medicine
DX: N13.2 Hydronephrosis with renal and ureteral calculous obstruction (principal); N23 Unspecified renal colic; Z79.899 Other long term (current) drug therapy
CPT/HCPCS: 74177; 80048; 81001; 85025; 96374; 99283; Q9967; A4216